=== PATIENT | male | born 1940 | race Caucasian/White ===

== ENCOUNTER 2017-01-31 20:08 | Inpatient (IN) | payer MEDICARE, OTHER ==
[~2017-01-31] VITALS: Ht 175.3 cm; Wt 70.7 kg
[2017-01-31] MEDS ORDERED: SOD CHLORIDE 0.9% 500 ML IV STA (20:11)
--- NOTE | 2017-01-31 20:23 | ERD ---
ER Documentation Chief Complaint Date/Time DATE: 01/31/17 TIME: 20:20 Chief Complaint lost pt's balance using a walker - c/o weakness/backpain, pt denies CP HPI 76-year-old male with a history of atrial fibrillation sent by his assisted living facility after a ground-level fall. The patient states that he was turning a corner with his walker and lost his balance and fell onto his back. He complains of some posterior head pain but no significant back pain. He denies any chest pain, shortness of breath, headache, fever, chills, abdominal pain, or dysuria. He has no focal weakness or numbness. He states that he is frequently dizzy and frequently has falls due to his gait disorder. ROS All systems reviewed and are negative except as per history of present illness. Medications Home Meds Reported Medications Zolpidem Tartrate* (Zolpidem Tartrate*) 5 Mg Tablet, 5 MG PO QHS Y for INSOMNIA , #30 TAB 01/31/17 Oxycodone HCl/Acetaminophen (Percocet 5-325 mg Tablet) 1 Each Tablet, 1 EACH PO , TAB 01/31/17 Morphine Sulfate* (Oramorph SR*) 15 Mg Tablet.sa, 15 MG PO Q12H, TAB.SA 01/31/17 Atorvastatin Calcium* (Atorvastatin Calcium*) 20 Mg Tablet, 20 MG PO QHS, #30 TAB 01/31/17 Tamsulosin Hcl* (Tamsulosin Hcl*) 0.4 Mg Cap.er.24h, 0.4 MG PO HS, CAP 01/31/17 Trazodone Hcl* (Trazodone Hcl*) 100 Mg Tablet, 100 MG PO QHS, #30 TAB 01/31/17 Divalproex Sodium* (Divalproex ER*) 250 Mg Tab.er.24h, 250 MG PO TID, #30 TAB.SA 01/31/17 Isosorbide Dinitrate* (Isosorbide Dinitrate*) 20 Mg Tablet, 20 MG PO Q12H, TAB 01/31/17 Gabapentin* (Gabapentin*) 300 Mg Capsule, 300 MG PO TID, #90 CAP 01/31/17 Lamotrigine* (Lamotrigine*) 25 Mg Tablet, 25 MG PO BID, TAB 01/31/17 Amiodarone Hcl* (Amiodarone Hcl*) 200 Mg Tablet, 200 MG PO DAILY, #30 TAB 01/31/17 Pantoprazole* (Pantoprazole*) 40 Mg Tablet.dr, 40 MG PO Q6:30AM, TAB 01/31/17 Allergies Allergies: Coded Allergies: No Known Allergy (Unverified , 01/31/17) PMhx/Soc History of Surgery: Yes (bilateral lower extremity bypass grafts) Hx Neurological Disorder: Yes (Parkinson's disease) Hx Cardiac Disorders: Yes (A fib) Hx Psychiatric Problems: Yes (Bipolar d/o) Hx Miscellaneous Medical Probl: Yes (BPH) FmHx Family History: No diabetes Physical Exam Vitals Vital Signs Date Time Temp Pulse Resp B/P Pulse Ox O2 Delivery O2 Flow Rate FiO2 01/31/17 20:11 98.2 90 17 139/75 96 Physical Exam Const: Well-appearing, no apparent distress Head: Atraumatic , No tenderness to palpation Eyes: Normal Conjunctiva, PERRLA, EOMI ENT: Normal External Ears, Nose and Mouth. Neck: Full range of motion..~ No meningismus.No C-spine tenderness to palpation Resp: Clear to auscultation bilaterally Cardio: Regular rate and rhythm, no murmurs Abd: Soft, non tender, non distended. Normal bowel sounds Skin: No petechiae or rashes, Superficial abrasion to left knee Back: No midline or flank tenderness. No step-offs. No evidence of trauma. Ext: No cyanosis, or edema. No deformities or tenderness to palpation. Neur: Awake and alert And oriented, strength and sensations intact in all 4 extremities, cranial nerves intact Psych: Normal Mood and Affect Result Diagram: 01/31/17205401/31/172054 Results 24 hrs Laboratory Tests Test 01/31/17 20:29 01/31/17 20:55 01/31/17 21:23 Bedside Glucose 127mg/dL White Blood Count 8.310^3/ul Red Blood Count 3.2210^6/ul Hemoglobin 10.8g/dl Hematocrit 32.8% Mean Corpuscular Volume 101.9fl Mean Corpuscular Hemoglobin 33.5pg Mean Corpuscular Hemoglobin Concent 32.9g/dl Red Cell Distribution Width 14.2% Platelet Count 36918^3/UL Mean Platelet Volume 10.4fl Neutrophils % % Lymphocytes % % Monocytes % % Eosinophils % % Basophils % % Nucleated Red Blood Cells % 0.0/100WBC Neutrophils # (Manual) 5.010^3/ul Lymphocytes # 10^3/ul Monocytes # 10^3/ul Eosinophils # 10^3/ul Basophils # 10^3/ul Nucleated Red Blood Cells # 10^3/ul Sodium Level 140mmol/L Potassium Level 4.7mmol/L Chloride Level 102mmol/L Carbon Dioxide Level 26mmol/L Anion Gap 17 Blood Urea Nitrogen 20mg/dl Creatinine 1.46mg/dl Glucose Level 105mg/dl Calcium Level 9.1mg/dl Troponin I 3.130ng/ml Urine Color YELLOW Urine Clarity CLEAR Urine pH 7.0 Urine Specific [place] 1.011 Urine Ketones NEGATIVEmg/dL Urine Nitrite NEGATIVEmg/dL Urine Bilirubin NEGATIVEmg/dL Urine Urobilinogen 1+mg/dL Urine Leukocyte Esterase 2+Maxim/ul Urine Microscopic RBC 2/HPF Urine Microscopic WBC 28/HPF Urine Hemoglobin NEGATIVEmg/dL Urine Glucose NEGATIVEmg/dL Urine Total Protein 2+mg/dl Current Medications Medications (Trade) Dose Ordered Sig/Andriy Route PRN Reason Start Time Stop Time Status Last Admin Dose Admin Sodium Chloride (NS) 500 ml @ 500 mls/hr Q1H STAT IV 01/31/17 20:11 01/31/17 21:10 DC 01/31/17 21:06 Procedures/MDM EKG#1: Rate/Rhythm: Normal Sinus Rhythm QRS, ST, T-waves: Left axis deviation, right bundle branch block,, anterolateral T-wave abnormalities, possibly ischemic Impression: No STEMI, abnormal EKG EKG#2: Rate/Rhythm: SB with sinus arrhythmia at 58 bpm QRS, ST, T-waves: right bundle branch block,LAFB , anterolateral T-wave abnormalities, possibly ischemic Impression: No STEMI, abnormal EKG CBC: no anemia or evidence of infection BMP: Creatinine elevated Troponin elevated UA: Positive leuk esterase and WBCs Chest x-ray: 1. Patchy left retrocardiac opacity which may represent atelectasis or consolidation. Chronic interstitial changes . Ginger Gomez Physician Date Time Electronically viewed and signed by Physician Whit on 01/31/2017 22:20 CT head: IMPRESSION: 1. No intracranial hemorrhage or acute intracranial abnormality. 2. Marked chronic microvascular ischemic changes and age related volume loss. 3. Remote right temporal lobe ischemic infarct. 4. Early ischemic injury may be occult to CT imaging and diffusion weighted MRI may be considered as clinically warranted. Physician Whit Date Time Electronically viewed and signed by Physician Whit on 01/31/2017 22:18 MDM Patient is presenting with dizziness and a ground-level fall. Vitals are stable and he is completely well appearing. Initial EKG showed some ischemic changes but no obvious STEMI. Basic labs and cardiac labs were ordered and were notable for elevation of troponin. Upon reevaluation, the patient continues to be asymptomatic. Aspirin was given in the field. CT head was done due to blunt head injury from the fall and showed no acute abnormality. I have a low suspicion for CVA, PE or dissection. Patient will be admitted for further workup for NSTEMI. I spoke with Dr. Gustafson, who accepted patient for admission to telemetry. Departure Diagnosis: Primary Impression: NSTEMI (non-ST elevated myocardial infarction) Additional Impression: Fall from ground level Condition: Serious SALIMA TORRES MD Jan 31, 2017 20:23
[2017-01-31] MEDS ORDERED: PANT40TA4 PO (20:44)
[2017-01-31] MEDS ORDERED: AMIO200T2 PO (20:45)
[2017-01-31] MEDS ORDERED: LAMO25TA PO (20:47)
[2017-01-31] MEDS ORDERED: GABA300C16 PO (20:48)
[2017-01-31] MEDS ORDERED: ISOS20TA19 PO (20:50)
[2017-01-31] MEDS ORDERED: TRAZ100T15 PO (20:52)
[2017-01-31] MEDS ORDERED: DIVA250T12 PO (20:52)
[2017-01-31] MEDS ORDERED: TAMS0.4C2 PO (20:55)
[2017-01-31] MEDS ORDERED: ATOR20TA38 PO (20:57)
[2017-01-31] MEDS ORDERED: MORP-72 PO (20:59)
[2017-01-31] MEDS ORDERED: OXYC-279 PO (21:01)
[2017-01-31] MEDS ORDERED: ZOLP5TAB7 PO (21:02)
[2017-01-31 21:17] LABS: ABNORMAL IP MESSAGE 1; HEMATOCRIT 32.8 % (42.0-52.0); HEMOGLOBIN 10.8 g/dl (14.0-18.0); MEAN CORPUSCULAR HEMOGLOBIN 33.5 pg (29.0-33.0); MEAN CORPUSCULAR HGB CONC 32.9 g/dl (32.0-37.0); MEAN CORPUSCULAR VOLUME 101.9 fl (82.0-101.0); MEAN PLATELET VOLUME 10.4 fl (7.4-10.4); PLATELET COUNT 174 10^3/UL (140-415); POSITIVE DIFF @See below; RED BLOOD COUNT 3.22 10^6/ul (4.70-6.10); RED CELL DISTRIBUTION WIDTH 14.2 % (11.5-14.5); WHITE BLOOD COUNT 8.3 10^3/ul (4.8-10.8)
[2017-01-31 21:35] LABS: CALCIUM 9.1 mg/dl (8.4-10.2); CREATININE 1.46 mg/dl (0.61-1.24); POTASSIUM 4.7 mmol/L (3.5-5.1)
[2017-01-31 21:49] LABS: ADD UMIC YES; UR ASCORBIC ACID NEGATIVE (NEGATIVE); UR BILIRUBIN (Dip) NEGATIVE (NEGATIVE); UR BLOOD (Dip) NEGATIVE (NEGATIVE); UR CLARITY CLEAR (CLEAR); UR COLOR YELLOW (YELLOW); UR GLUCOSE (Dip) NEGATIVE (NEGATIVE); UR KETONES (Dip) NEGATIVE (NEGATIVE); UR LEUKOCYTE ESTERASE (Dip) 2+ Leu/ul (NEGATIVE); UR NITRITE (Dip) NEGATIVE (NEGATIVE); UR RBC 2 /HPF (0-5); UR SPECIFIC GRAVITY (Dip) 1.011 (1.003-1.030); UR TOTAL PROTEIN (Dip) 2+ mg/dl (NEGATIVE); UR UROBILINOGEN (Dip) 1+ mg/dL (NEGATIVE)
[2017-01-31 21:51] LABS: TROPONIN-I 3.13 ng/ml (0.00-0.12)
--- NOTE | 2017-01-31 22:18 | RADRPT ---
PROCEDURE: CT Brain without contrast. CLINICAL INDICATION: Patient experiencing Syncope. TECHNIQUE: A multiplanar CT of the brain was performed on a CT scanner utilizing axial imaging fro m the skull base through the vertex without IV contrast. The CTDIvol is 43.44 mGy and the DLP is 92 2.20 mGycm. One or more of the following dose reduction techniques were utilized: Automated exposu re control, adjustment of the mA and/or kV according to patient size, use of iterative reconstructio n technique. COMPARISON: None FINDINGS: No evidence of intracranial hemorrhage or abnormal extra-axial fluid collection. Moderate patchy periventricular and subcortical white matter low attenuation compatible with sequela e of chronic microvascular ischemic injury. Encephalomalacia of the right posterior inferior tempora l lobe with mild ex vacuo dilatation of the right lateral ventricle most compatible with sequelae of remote ischemic infarct the brain parenchyma is otherwise grossly normal in morphology with preserv ation of remaining howard white differentiation. The ventricles are prominent compatible with marked c entral cerebral and cerebellar volume loss. Atherosclerotic calcification of the cavernous internal carotid arteries.. Bilateral lens surgery. The basal cisterns, posterior fossa contents, brainstem, craniocervical junction, orbits, pituitary axis, paranasal sinuses, mastoid air cells, and calvarium are unremarkable. IMPRESSION: 1. No intracranial hemorrhage or acute intracranial abnormality. 2. Marked chronic microvascular ischemic changes and age related volume loss. 3. Remote right temporal lobe ischemic infarct. 4. Early ischemic injury may be occult to CT imaging and diffusion weighted MRI may be considered as clinically warranted. RPTAT:AAJJ Physician Whit Date Time Electronically viewed and signed by Physician Whit on 01/31/2017 22:18 RENETTA/
--- NOTE | 2017-01-31 22:20 | RADRPT ---
PROCEDURE: XR Chest. CLINICAL INDICATION: Syncope TECHNIQUE: Single AP portable chest. COMPARISON: No prior Chest x-ray FINDINGS: The cardiac silhouette is at the upper limits of normal size. Without pleural effusion or focal con solidation. Left retrocardiac atelectasis and/or consolidation. Atherosclerotic calcification of the aorta. The lungs are clear without pleural effusion or focal consolidation. No pneumothorax. Th e osseous structures and soft tissues are unremarkable. IMPRESSION: 1. Patchy left retrocardiac opacity which may represent atelectasis or consolidation. Chronic inter stitial changes . RPTAT:AAJJ Gniger Gomez Physician Date Time Electronically viewed and signed by Physician Whit on 01/31/2017 22:20 RENETTA/
[2017-01-31] MEDS ORDERED: ACETAMINOPHEN 325 MG TAB PO PRN (22:30)
[2017-01-31] MEDS ORDERED: ONDANSETRON 4 MG INJ IV PRN (22:30)
[2017-02-01] VITALS (14 sets, daily range): BP systolic 102–167; BP diastolic 51–80; PULSE 47–95; RESP 17–21; TEMP 98.3; Ht 175.3 cm; Wt 70.7 kg
[2017-02-01] MEDS: ENOXAPARIN 80 MG/0.8 ML SYG SC SCH ×2 (04:13→20:22)
[2017-02-01] MEDS: morphine 2 MG INJ IV PRN (04:16)
[2017-02-01] MEDS: NITROGLYCERIN (SL) 0.4 MG TAB SL PRN ×3 (04:51→05:07)
[2017-02-01] MEDS ORDERED: ALBUTEROL/IPRATROPIUM (NEB) 3 ML AMP HHN STA (05:08)
[2017-02-01 05:27] LABS: AADO2 Arterial 178.3 mmHg (7.0-24.0); Allen Test ACCEPTAB; Arterial Base Excess -0.2 mmol/L (-3.0-3); Arterial COHb 0.8 % (0.0-3.0); Arterial Fraction of Oxyhgb 87.3 % (93.0-99.0); Arterial HCO3 24.4 mmol/L (22.0-26.0); Arterial MetHb 0.2 % (0.0-1.5); Arterial Total Hemglobin 11.9 g/dl (12.0-18.0); MODE NASAL CANNULA
[2017-02-01] MEDS ORDERED: PENDING SANTYL ORDER FOR WOUND CARE XX PRN (06:00)
[2017-02-01 08:33] LABS: ABNORMAL IP MESSAGE 1; BASOPHILS % 0.3 % (0.0-2.0); EOSINOPHILS # 0.1 10^3/ul (0.0-0.5); EOSINOPHILS % 1.2 % (0.0-7.0); HEMATOCRIT 30.6 % (42.0-52.0); HEMOGLOBIN 9.9 g/dl (14.0-18.0); LYMPHOCYTES % 9.5 % (15.0-51.0); MEAN CORPUSCULAR HEMOGLOBIN 33.1 pg (29.0-33.0); MEAN CORPUSCULAR HGB CONC 32.4 g/dl (32.0-37.0); MEAN CORPUSCULAR VOLUME 102.3 fl (82.0-101.0); MEAN PLATELET VOLUME 11.5 fl (7.4-10.4); MONOCYTE # 2.6 10^3/ul (0.3-0.9); MONOCYTES % 24.3 % (0.0-11.0); NEUTROPHILS % 64.4 % (39.0-77.0); PLATELET COUNT 214 10^3/UL (140-415); POSITIVE DIFF @See below; RED BLOOD COUNT 2.99 10^6/ul (4.70-6.10); RED CELL DISTRIBUTION WIDTH 14.5 % (11.5-14.5); WHITE BLOOD COUNT 10.7 10^3/ul (4.8-10.8)
[2017-02-01 08:42] LABS: ALBUMIN 2.7 g/dl (3.3-4.9); ALBUMIN/GLOBULIN RATIO 1.08; BILIRUBIN,INDIRECT 0.2 mg/dl (0-1.1); BILIRUBIN,TOTAL 0.2 mg/dl (0.2-1.3); CALCIUM 8.5 mg/dl (8.4-10.2); CREATININE 1.37 mg/dl (0.61-1.24); POTASSIUM 4.8 mmol/L (3.5-5.1); TOTAL PROTEIN 5.2 g/dl (6.1-8.1)
[2017-02-01] MEDS: ISOSORBIDE DINITRATE 20 MG TAB PO SCH ×2 (08:55→20:20)
[2017-02-01] MEDS: morphine (ER) 15 MG TAB PO SCH ×2 (08:55→20:29)
[2017-02-01] MEDS: GABAPENTIN 300 MG CAP PO SCH ×3 (08:55→20:19)
[2017-02-01] MEDS: ASPIRIN (EC) 81 MG TAB PO SCH (08:55)
[2017-02-01] MEDS: AMIODARONE 200 MG TAB PO SCH (08:56)
[2017-02-01] MEDS: PANTOPRAZOLE (EC) 40 MG TAB PO SCH (08:56)
[2017-02-01] MEDS: LAMOTRIGINE 25 MG TAB PO SCH ×2 (08:58→20:20)
[2017-02-01] MEDS: DIVALPROEX (ER) 250 MG TAB PO SCH ×4 (08:58→20:19)
[2017-02-01 09:01] LABS: IRON 55 ug/dl (35-150)
[2017-02-01 09:11] LABS: TOTAL IRON BINDING CAPACITY 234 ug/dl (241-421)
--- NOTE | 2017-02-01 09:35 | HP ---
Date/Time of Note Date/Time of Note DATE: 02/01/17 TIME: 09:25 Assessment/Plan VTE Prophylaxis VTE Prophylaxis Intervention: LMWH Lines/Catheters IV [facility] Saline Lock Urinary Cath still in place: No Assessment/Plan Assessment/Plan 1. NSTEMI -Therapeutic dose Lovenox, supplemental oxygen, aspirin, beta-rita, statin -2D echo and cardiology consults 2. Status post fall -Based on the patient's description, it seems like this was a mechanical fall. Head CT showed early ischemic injury as well as remote infarct. Will order MRI of the brain. 3. UTI -Follow-up culture results -Antibiotic 4. Presumed acute kidney injury -Renal ultrasound and nephrology consult 5. Anemia, likely anemia of chronic disease -Evaluate for iron deficiency. Will send FOBT. Follow-up H&H and transfuse as needed HPI/ROS Admit Date/Time Admit Date/Time Jan 31, 2017 at 22:03 Hx of Present Illness This is a 76-year-old male with a history of A. fib, Parkinson's disease, bipolar disorder, PVD, s/p bilateral lower extremity bypass who was sent from assisted living facility status post GLF. Patient said he was ambulating using his walker when he somehow tripped and fell. He did bump his head his head against the wall and landed on his back. Denied loss of consciousness. Reported a slight dizziness, but denied chest pain, palpitation or shortness of breath When he presented to the ER, CT of the head shows remote infarcts as well as early ischemic injury. He is a first troponin was noted to be 3.13 and a second troponin III 0.0. His creatinine 1.46. His a urinalysis is consistent with UTI. Chest x-ray shows Patchy left retrocardiac opacity which may represent atelectasis or consolidation. Chronic interstitial changes . . PMH/Family/Social Past Medical History A. fib Parkinson's disease Bipolar disorder Social History Smoking Status: Current some day smoker Exam/Review of Systems Vital Signs Vitals Vital Signs Date Time Temp Pulse Resp B/P Pulse Ox O2 Delivery O2 Flow Rate FiO2 02/01/17 08:14 97.7 59 18 124/58 100 02/01/17 05:42 10.0 02/01/17 05:42 Simple Mask Intake and Output 01/31/17 01/31/1702/01/17 15:00 23:00 07:00 Intake Total 0 ml Balance 0 ml Exam Constitutional: other (Mild respiratory distress. Hard of hearing) Head: atraumatic, normocephalic Eyes: EOMI, PERRL Respiratory: clear to auscultation, normal air movement Cardiovascular: nl pulses, regular rate and rhythm Gastrointestinal: non-tender, soft Extremities: normal pulses Skin: ecchymosis Labs Result Diagram: 02/01/1772602/01/17726 Medications Medications Current Medications Enoxaparin Sodium (Lovenox) 70 mg Q12 SC Last administered on 02/01/17 04:13; Admin Dose 70 MG; Start 02/01/17 at 04:00 Nitroglycerin (Nitroglycerin (Sl Tab) 0.4 Mg) 1 tab Q5M PRN SL ANGINA Last administered on 02/01/17 05:07; Admin Dose 1 TAB; Start 02/01/17 at 04:00 Morphine Sulfate (morphine) 2 mg Q4H PRN IV PAIN Last administered on 04:16; Admin Dose 2 MG; Start 02/01/17 at 04:00 Miscellaneous Information (Pending Santyl Order For Wound Care) This patient becker... PRN PRN XX WOUND CARE; Start 02/01/17 at 06:00 Amiodarone HCl (Cordarone) 200 mg DAILY PO ; Start 02/01/17 at 09:00 Atorvastatin Calcium (Lipitor) 20 mg QHS PO ; Start 02/01/17 at 21:00 Divalproex Sodium (Depakote Er) 250 mg TID PO Last administered on 02/01/17 08 :59; Admin Dose 250 MG; Start 02/01/17 at 09:00 Gabapentin (Neurontin) 300 mg TID PO Last administered on 02/01/17 08:55; Admin Dose 300 MG; Start 02/01/17 at 09:00 Isosorbide Dinitrate (Isordil) 20 mg Q12H PO Last administered on 02/01/17 08: 55; Admin Dose 20 MG; Start 02/01/17 at 07:30 Lamotrigine (Lamictal) 25 mg BID PO Last administered on 02/01/17 08:58; Admin Dose 25 MG; Start 02/01/17 at 09:00 Morphine Sulfate (Ms Contin (Er)) 15 mg Q12H PO Last administered on 02/01/17 08:55; Admin Dose 15 MG; Start 02/01/17 at 07:30 Pantoprazole (Protonix Tab) 40 mg DAILY PO Last administered on 02/01/17 08:56 ; Admin Dose 40 MG; Start 02/01/17 at 09:00 Tamsulosin HCl (Flomax) 0.4 mg HS PO ; Start 02/01/17 at 21:00 Trazodone HCl (Desyrel) 100 mg QHS PO ; Start 02/01/17 at 21:00 Zolpidem Tartrate (Ambien) 5 mg QHS PRN PO INSOMNIA; Start 02/01/17 at 07:30 Aspirin (Halfprin) 81 mg DAILY PO Last administered on 02/01/17 08:55; Admin Dose 81 MG; Start 02/01/17 at 09:00 VINCENZO AQUINO MD Feb 01, 2017 09:35
--- NOTE | 2017-02-01 09:55 | QN ---
Documentation Comment 76 yo with HTN, PAD, parox a. fib - now with fall (unclear cause), RBBB/LAFB - intermittent - might be rate dependant, and NSTEMI. For now - med RX - con't r/ o MT - STRESS TEST when more stable Full Note dictated # [id number] Thank you CRESCENCIO CARRASQUILLO MD Feb 01, 2017 09:55
--- NOTE | 2017-02-01 10:09 | PN ---
Date/Time of Note Date/Time of Note DATE: 02/01/17 TIME: 10:07 Assessment/Plan VTE Prophylaxis VTE Prophylaxis Intervention: LMWH Lines/Catheters IV C[facility] (from [facility] Saline Lock Urinary Cath still in place: No Assessment/Plan Chief Complaint/Hosp Course Assessment and plan 1. Non-ST elevated myocardial infarction. Continue on therapeutic dose of Lovenox and oxygen as well as beta-rita and statin medication. 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 Follow-up on echocardiogram. 2. Status post mechanical fall. CT scan of the head showed early ischemic injury. MRI of the brain is pending. Physical therapy to follow. 3. UTI. Continue antibiotics for now. 4. Acute kidney injury. Medications to be renally dosed. Follow-up on renal panel. Postal Inspector to follow. 5. Anemia of chronic disease. Stable at present. Follow-up on pending her level. Disposition and plan: Continue on therapeutic dose of Lovenox for now. Tentative plan for stress test once more stable. Continue with in tube conversion technician recommendations. Discussed plan of care with Dr. Landon Problems: Subjective 24 Hr Interval Summary Free Text/Dictation Still reports having chest discomfort. Also reports having some shortness of breath associated with it Exam/Review of Systems Vital Signs Vitals Vital Signs Date Time Temp Pulse Resp B/P Pulse Ox O2 Delivery O2 Flow Rate FiO2 02/01/17 08:14 97.7 59 18 124/58 100 02/01/17 05:42 10.0 02/01/17 05:42 Simple Mask Intake and Output 01/31/17 01/31/17 02/01/17 14:59 22:59 06:59 Intake Total 0 ml Balance 0 ml Exam Constitutional: alert, oriented Psych: nl mood/affect Head: normocephalic Eyes: nl conjunctiva Respiratory: clear to auscultation Cardiovascular: other (regular rate ) Gastrointestinal: non-tender, soft Extremities: normal pulses Neurological: nl mental status, nl speech Skin: nl turgor Results Result Diagram: 02/01/17 0702/01/17 0727 Results 24 hrs Laboratory Tests Test 01/31/17 20:29 01/31/17 20:55 01/31/17 21:23 02/01/17 03:50 Bedside Glucose 127 White Blood Count 8.3 Red Blood Count 3.22 L Hemoglobin 10.8 L Hematocrit 32.8 L Mean Corpuscular Volume 101.9 H Mean Corpuscular Hemoglobin 33.5 H Mean Corpuscular Hemoglobin Concent 32.9 Red Cell Distribution Width 14.2 Platelet Count 174 Mean Platelet Volume 10.4 Neutrophils % Lymphocytes % Monocytes % Eosinophils % Basophils % Nucleated Red Blood Cells % 0.0 Neutrophils # (Manual) 5.0 Lymphocytes # Monocytes # Eosinophils # Basophils # Nucleated Red Blood Cells # Sodium Level 140 Potassium Level 4.7 Chloride Level 102 Carbon Dioxide Level 26 Anion Gap 17 H Blood Urea Nitrogen 20 Creatinine 1.46 H Glucose Level 105 Calcium Level 9.1 Troponin I 3.130 *H 3.050 *H Urine Color YELLOW Urine Clarity CLEAR Urine pH 7.0 Urine Specific [place] 1.011 Urine Ketones NEGATIVE Urine Nitrite NEGATIVE Urine Bilirubin NEGATIVE Urine Urobilinogen 1+ H Urine Leukocyte Esterase 2+ H Urine Microscopic RBC 2 Urine Microscopic WBC 28 H Urine Hemoglobin NEGATIVE Urine Glucose NEGATIVE Urine Total Protein 2+ H Test 02/01/17 05:03 02/01/17 07:24 02/01/17 07:27 Blood Gas Specimen Source Blood arterial Arterial Blood Date Drawn 02/01/2017 5:20:10 AM Arterial Blood pH (Temp corrected) 7.408 Arterial Blood pCO2 (Temp correct) 39.5 Arterial Blood pO2 (Temp corrected) 54.2 *L Arterial Blood HCO3 24.4 Arterial Blood Base Excess -0.2 Arterial Blood Oxygen Saturation 88.2 L Ovidio Test ACCEPTAB Arterial Blood Gas Puncture Site Right Radial Arterial Blood Carboxyhemoglobin 0.8 Arterial Blood Methemoglobin 0.2 Blood Gas A-a O2 Differential 178.3 H Oxyhemoglobin Percent 87.3 L Total Hemoglobin 11.9 L Blood Gas Temperature 37.0 Blood Gas Modality NASAL CANNULA FiO2 39.0 Blood Gas Critical Value Read Back DIEGO JIMENEZ Blood Gas Notified Whom RUSTY Blood Gas Notified Time 02/01/2017 5:27:04 AM Iron Level 55 Total Iron Binding Capacity 234 L Percent Iron Saturation 24 White Blood Count 10.7 # Red Blood Count 2.99 L Hemoglobin 9.9 L Hematocrit 30.6 L Mean Corpuscular Volume 102.3 H Mean Corpuscular Hemoglobin 33.1 H Mean Corpuscular Hemoglobin Concent 32.4 Red Cell Distribution Width 14.5 Platelet Count 214 # Mean Platelet Volume 11.5 H Neutrophils % 64.4 Lymphocytes % 9.5 L Monocytes % 24.3 H Eosinophils % 1.2 Basophils % 0.3 Nucleated Red Blood Cells % 0.0 Neutrophils # (Manual) 6.9 Lymphocytes # 1.0 Monocytes # 2.6 H Eosinophils # 0.1 Basophils # 0.0 Nucleated Red Blood Cells # 0.0 Sodium Level 143 Potassium Level 4.8 Chloride Level 106 Carbon Dioxide Level 27 Anion Gap 15 Blood Urea Nitrogen 21 H Creatinine 1.37 H Glucose Level 77 Calcium Level 8.5 Ferritin 44.0 Total Bilirubin 0.2 Direct Bilirubin 0.00 Indirect Bilirubin 0.2 Aspartate Amino Transf (AST/SGOT) 36 Alanine Aminotransferase (ALT/SGPT) 27 Alkaline Phosphatase 41 L Total Protein 5.2 L Albumin 2.7 L Globulin 2.50 Albumin/Globulin Ratio 1.08 Medications Medications Current Medications Enoxaparin Sodium (Lovenox) 70 mg Q12 SC Last administered on 02/01/17 04:13; Admin Dose 70 MG; Start 02/01/17 at 04:00 Nitroglycerin (Nitroglycerin (Sl Tab) 0.4 Mg) 1 tab Q5M PRN SL ANGINA Last administered on 02/01/17 05:07; Admin Dose 1 TAB; Start 02/01/17 at 04:00 Morphine Sulfate (morphine) 2 mg Q4H PRN IV PAIN Last administered on 04:16; Admin Dose 2 MG; Start 02/01/17 at 04:00 [facility] This patient becker... PRN PRN XX WOUND CARE; Start 02/01/17 at 06:00 Amiodarone HCl (Cordarone) 200 mg DAILY PO ; Start 02/01/17 at 09:00 Atorvastatin Calcium (Lipitor) 20 mg QHS PO ; Start 02/01/17 at 21:00 Divalproex Sodium (Depakote Er) 250 mg TID PO Last administered on 02/01/17 08 :59; Admin Dose 250 MG; Start 02/01/17 at 09:00 Gabapentin (Neurontin) 300 mg TID PO Last administered on 02/01/17 08:55; Admin Dose 300 MG; Start 02/01/17 at 09:00 Isosorbide Dinitrate (Isordil) 20 mg Q12H PO Last administered on 02/01/17 08: 55; Admin Dose 20 MG; Start 02/01/17 at 07:30 Lamotrigine (Lamictal) 25 mg BID PO Last administered on 02/01/17 08:58; Admin Dose 25 MG; Start 02/01/17 at 09:00 Morphine Sulfate (Ms Contin (Er)) 15 mg Q12H PO Last administered on 02/01/17 08:55; Admin Dose 15 MG; Start 02/01/17 at 07:30 Pantoprazole (Protonix Tab) 40 mg DAILY PO Last administered on 02/01/17 08:56 ; Admin Dose 40 MG; Start 02/01/17 at 09:00 Tamsulosin HCl (Flomax) 0.4 mg HS PO ; Start 02/01/17 at 21:00 Trazodone HCl (Desyrel) 100 mg QHS PO ; Start 02/01/17 at 21:00 Zolpidem Tartrate (Ambien) 5 mg QHS PRN PO INSOMNIA; Start 02/01/17 at 07:30 Aspirin 81 mg 81 mg DAILY PO Last administered on 02/01/17 08:55; Admin Dose 81 MG; Start 02/01/17 at 09:00 Ciprofloxacin/ Dextrose (Cipro Ivpb) 200 ml @ 200 mls/hr Q12 IVPB ; Start 02/01 at 10:30 RADHA EISENBERG Feb 01, 2017 10:09
[2017-02-01] MEDS: CIPROFLOXACIN 400MG/D5W 200 ML IVPB SCH ×2 (11:24→20:20)
--- NOTE | 2017-02-01 12:10 | CONS ---
DATE OF ADMISSION: 01/31/2017 DATE OF CONSULTATION: 02/01/2017 REASON FOR CONSULTATION: Acute kidney injury. REQUESTING PHYSICIAN: Gopal Gustafson MD HISTORY OF PRESENT ILLNESS: This is a 76-year-old male with a past medical history of atrial fibrillation, Parkinson disease, bipolar disorder, peripheral vascular disease status post bilateral lower extremity bypass, who presents to [facility] from assisted living after having a ground level fall. The patient apparently was ambulating with his walker, somehow tripped and he fell. The patient did not lose consciousness. He came to the emergency room for evaluation. In the emergency room had a CT scan which showed evidence of remote infarct. The patient also had a initial troponin to be 3.39, creatinine 1.46. Chest x-ray also showed patchy left retrocardiac opacity in the emergency room. The patient was given nebulizer therapy, IV fluids, given Lovenox and admitted to telemetry for evaluation. In terms of patient's renal history, per patient has no prior history of kidney disease. Denies any episodes of any rashes, hemoptysis, hematemesis, hematochezia. PAST MEDICAL HISTORY: As stated above history of atrial fibrillation, Parkinson disease, bipolar disorder. PAST SURGICAL HISTORY: None. SOCIAL HISTORY: Positive tobacco use. FAMILY HISTORY: Noncontributory. MEDICATION: Reviewed. REVIEW OF SYSTEMS: A 14-point review of systems conducted with pertinent positives as in HPI, otherwise negative. OBJECTIVE DATA: VITAL SIGNS: Blood pressure is 124/58, respirations 18, pulse 69, temperature 97.7. HEENT: Head is normocephalic. NECK: Supple. HEART: Regular rate. LUNGS: Diminished breath sounds at the base. ABDOMEN: Soft, nontender to palpation. No rebound or guarding. EXTREMITIES: Negative for clubbing, cyanosis. No edema. DERMATOLOGIC: Clean. No rashes. MUSCULOSKELETAL: No joint effusion. NEUROLOGIC: Unchanged exam. LABORATORY: White count 10.7, hemoglobin 9.9, hematocrit 30.3, platelet count is 214,000. Sodium 143, potassium 4.9, chloride 106, BUN is 21, creatinine 1.31. DIAGNOSTIC DATA: Imaging studies as in HPI. IMPRESSION AND PLAN: This is a 76-year-old male presents with: 1. Nonoliguric acute kidney injury on top of probable chronic kidney disease with unknown baseline creatinine. Etiology of current acute kidney injury is likely hemodynamics. The patient's initial urinalysis is bland, no active sediment. The patient does have +2 proteinuria and pyuria. Plan at this point is to do a full evaluation. Will repeat urinalysis with microanalysis. We will check urine electrolytes. Check renal ultrasound to evaluate renal parenchyma. Would otherwise continue supportive care. Renally dose all medications. Avoid nephrotoxins. Would defer any KWAKU inhibitor at this time. 2. Anemia. Monitor hemoglobin and hematocrit levels. Will check iron panel. 3. Mineral bone disorder. Monitor calcium and phosphorus levels. 4. Non-ST elevated myocardial infarction. Continue current medical management. Follow up with Cardiology. 5. Mechanical fall. Continue physical therapy. 6. Urinary tract infection. Continue current antibiotic regimen. Thank you, Dr. Gustafson, for this interesting consult. It will be a pleasure to follow patient with you throughout the hospital course. Dictated By: Lee James DO /faye/rio /Document#: [id number]
--- NOTE | 2017-02-01 13:40 | RADRPT ---
PROCEDURE: US Renal CLINICAL INDICATION: Elevated creatinine. TECHNIQUE: Multiple sonographic images of the kidneys and bladder were obtained. Evaluation of th e kidneys and bladder was performed as well with howard scale and color and Doppler evaluation using a curved array transducer. The images were reviewed on a high-resolution PACS workstation. COMPARISON: No prior studies are available for comparison. FINDINGS: The right kidney measures 9.8 cm. The left kidney measures 13.8 cm. There is normal echogenicity within the parenchyma of the kidneys bilaterally. There are multiple bilateral renal cysts. Largest on the right measures 2.8 x 1.5 cm. The largest on the left measures 10.4 x 6.1 cm. There is no evidence of hydronephrosis. No perinephric fluid collection is seen. Evaluation of the urinary bladder is unremarkable. IMPRESSION: 1. Bilateral renal cysts. RPTAT: [facility] Physician Alyin Date Time Electronically viewed and signed by Physician Aylin on 02/01/2017 13:39 /
[2017-02-01 15:27] LABS: ADD UMIC YES; UR ASCORBIC ACID NEGATIVE (NEGATIVE); UR BILIRUBIN (Dip) NEGATIVE (NEGATIVE); UR BLOOD (Dip) NEGATIVE (NEGATIVE); UR CLARITY CLEAR (CLEAR); UR COLOR YELLOW (YELLOW); UR GLUCOSE (Dip) NEGATIVE (NEGATIVE); UR KETONES (Dip) NEGATIVE (NEGATIVE); UR LEUKOCYTE ESTERASE (Dip) 1+ Leu/ul (NEGATIVE); UR NITRITE (Dip) NEGATIVE (NEGATIVE); UR RBC 2 /HPF (0-5); UR SPECIFIC GRAVITY (Dip) 1.016 (1.003-1.030); UR TOTAL PROTEIN (Dip) 2+ mg/dl (NEGATIVE); UR UROBILINOGEN (Dip) 1+ mg/dL (NEGATIVE)
--- NOTE | 2017-02-01 18:11 | RADRPT ---
Vent Rate: 63 bpm RR Interval: 0 msec [place] Interval: 160 msec QRS Duration: 148 msec QT Interval: 442 msec QTC Interval: 452 msec P-R-T [place]: 66 - -74 - -43 degrees Normal sinus rhythm Left axis deviation Right bundle branch block T wave abnormality, consider inferolateral ischemia Abnormal ECG Electronically Signed By: Tushar Rivera [id number]
[2017-02-01] MEDS: TAMSULOSIN (SR) 0.4 MG CAP PO SCH (20:19)
[2017-02-01] MEDS: ATORVASTATIN 20 MG TAB PO SCH (20:20)
[2017-02-01] MEDS: traZODone 100 MG TAB PO SCH (20:29)
--- NOTE | 2017-02-01 21:38 | CONS ---
Date/Time of Note Date/Time of Note DATE: 02/01/17 TIME: 21:37 Assessment/Plan Assessment/Plan Chief Complaint/Hosp Course neuro consult dictated [id number]. Thanks Problems: CANDY VILLAVICENCIO MD Feb 01, 2017 21:38
[2017-02-02] VITALS (12 sets, daily range): BP systolic 108–140; BP diastolic 58–69; PULSE 47–61; RESP 16–18
--- NOTE | 2017-02-02 02:32 | CONS ---
DATE OF ADMISSION: 01/31/2017 DATE OF CONSULTATION: 02/01/2017 Thank you, Dr. Jeong, for the kind referral for evaluation for fall and possible stroke. HISTORY OF PRESENT ILLNESS: Patient is a 76-year-old gentleman with past medical history of atrial fibrillation, bipolar disorder, peripheral vascular disease, history of lower extremity bypass, as well as a reported of history of Parkinson disease, who presented after an accidental fall from his assisted living facility. He was ambulating with a walker and then tripped and fell, complained of hitting the head, no loss of consciousness. CAT scan did not show any acute abnormality but remote right temporal lobe ischemic infarct and microvascular ischemic changes. Chest x-ray: Patchy left retrocardiac opacity. Renal ultrasound was done, showing bilateral renal cysts. On admission, the patient had BUN of 20, creatinine 1.46 with elevated troponins 3.1. Rest of the comprehensive metabolic panel was done today showing total protein 5.2, and albumin 2.7. Hemoglobin 10, hematocrit 32, increased indices, normal WBCs and platelets. Urinalysis: 1+ leukocyte esterase, 14 WBCs, protein in the urine. ABG: pCO2 39, PO2 54, on nasal cannula. EKG shows normal rhythm. Cardiology is on the case. SOCIAL HISTORY: Cigarette smoker. FAMILY HISTORY: Not contributory. MEDICATIONS: Prior to admission were: 1. Tamsulosin. 2. Amiodarone. 3. Atorvastatin 20 mg. 4. Isosorbide. 5. Depakote ER 250 mg 3 times a day. 6. Gabapentin 300 mg 3 times a day. 7. Lamotrigine 25 mg twice daily. 8. Oxycodone. 9. Trazodone. 10. Zolpidem. 11. Pantoprazole. Currently he is on: 12. Lipitor 40. 13. Flomax. 14. trazodone. 15. Ciprofloxacin. 16. Amiodarone. 17. Depakote as prior to admission, as well as. 18. Gabapentin. 19. Lamictal. 20. Aspirin 81 mg. 21. Isosorbide. 22. Morphine. ALLERGIES: NONE. PHYSICAL EXAMINATION: VITAL SIGNS: Today, 98.2 temperature, 57pulse, 17 respirations, 102/51 blood pressure. GENERAL APPEARANCE: Not in acute distress. Lying in bed. HEENT: Normocephalic,m atraumatic head. No carotid bruits. No thyromegaly. LUNGS: Clear to auscultation bilaterally. No meningeal signs. HEART: Normal cardiac rhythm and sounds. ABDOMEN: Soft. EXTREMITIES: No cyanosis, clubbing, or edema. NEUROLOGIC: He is awake, alert, and oriented x2, knows date, fluent speech. Cranial nerve examination: Intact visual dimas to visual threat bilaterally. Pupils postsurgical bilaterally. Extraocular movements intact without nystagmus. Symmetrical face. Preserved facial strength and sensation. Tongue is midline. Palate elevates symmetrically. Motor strength examination seemed to be preserved in all extremities. The patient is not fully cooperative with the examination for manual strength testing. Trace of cogwheeling noticed in the upper extremities. Sensory examination: Grossly intact to light touch. Deep tendon reflexes 1+ upper extremities, absent in lower extremities. Equivocal response to plantar stimulation bilaterally. Coordination is preserved on pxssag-aa-oyljhw testing. Mild postural tremor noticed on the fingers. No resting tremor is seen. No dysmetria. Gait was not assessed. IMPRESSION: 1. Status post incidental fall with blunt head trauma. CAT scan did not show any acute abnormality. 2. Patient also with history of atrial fibrillation. Currently, myocardial infarction. Cardiology workup underway. He has history of bipolar disorder and is on several mood stabilizers. Likely mild tremulousness in the fingers is secondary to oral Valproic acid use. 3. According to the chart, patient has history of Parkinson disease. He is not on any parkinsonian medications and he seemed to be somewhat confused and could not provide history of whether or not he has or for how long. I did not asses his gait though, i will leave it physical therapist, but I did not see any major parkinsonian features on examination so far. 4. Also, I do not know from the charts why he is taking morphine. Continue current treatment for urinary tract infection and myocardial infarction. Thank you very much for this interesting consultation. Dictated By: Juanito Brownlee MD /faye/tricia /Document#: [id number] TARUN
[2017-02-02 08:09] LABS: ABNORMAL IP MESSAGE 1; BASOPHIL # 0.1 10^3/ul (0.0-0.1); BASOPHILS % 0.6 % (0.0-2.0); EOSINOPHILS # 0.3 10^3/ul (0.0-0.5); EOSINOPHILS % 4.1 % (0.0-7.0); HEMATOCRIT 31.6 % (42.0-52.0); LYMPHOCYTES # 1.7 10^3/ul (0.8-2.9); LYMPHOCYTES % 21.5 % (15.0-51.0); MEAN CORPUSCULAR HEMOGLOBIN 33.1 pg (29.0-33.0); MEAN CORPUSCULAR HGB CONC 31.6 g/dl (32.0-37.0); MEAN CORPUSCULAR VOLUME 104.6 fl (82.0-101.0); MEAN PLATELET VOLUME 10.2 fl (7.4-10.4); MONOCYTES % 25.1 % (0.0-11.0); NEUTROPHILS % 48.4 % (39.0-77.0); PLATELET COUNT 164 10^3/UL (140-415); POSITIVE DIFF @See below; RED BLOOD COUNT 3.02 10^6/ul (4.70-6.10); RED CELL DISTRIBUTION WIDTH 13.8 % (11.5-14.5); WHITE BLOOD COUNT 7.8 10^3/ul (4.8-10.8)
--- NOTE | 2017-02-02 08:26 | CONS ---
DATE OF ADMISSION: 01/31/2017 DATE OF CONSULTATION: 02/01/2017 REASON FOR CONSULTATION: [id number] myocardial infarction, abnormal EKG, bundle branch block. HISTORY OF PRESENT ILLNESS: This is a 76-year-old gentleman with history of hypertension, atrial fibrillation, bipolar disease, peripheral vascular disease with prior lower extremity bypass, history of coronary artery disease and likely history of heart failure, who comes to the hospital now for evaluation of ground level fall. I do not believe the fall was witnessed. When the patient came to the hospital he was noted to be in sinus tachycardia with left anterior fascicular block, right bundle branch block, and some evidence of troponin elevation. I have been asked to see patient in consultation in order to assess his cardiac condition. Patient's troponin was elevated to 3.13 and now down to 0.0. His CK is 1.4. The patient has noted no chest pain right now. The patient is in sinus rhythm on telemetry with a heart rate about 63. For now, the patient appears to be hemodynamically stable. There is no evidence of chest pain at the moment. Also of interest, on telemetry it appears that the patient's QRS is fairly narrow and we will check another EKG to see if there is rate related aberration in his rhythm versus intermittent heart block. For now, conservative therapy is expected. We will continue to optimize patient's fluid status. We will treat expectantly and provide more recommendations as available. Once the patient is more stable, we will continue his recertification with a stress test. PAST MEDICAL HISTORY: Hypertension, dyslipidemia, paroxysmal atrial fibrillation, history of dementia, history of bipolar disease, peripheral vascular disease. ALLERGIES: NO KNOWN DRUG ALLERGIES. SOCIAL HISTORY: Does not smoke. Does not drink. Does not use any drugs. FAMILY HISTORY: Negative for sudden or premature coronary artery disease. MEDICATION: Include: 1. Lovenox subcu. 2. Nitroglycerin. 3. Morphine. 4. Amiodarone 20 mg once a day. 5. Atorvastatin. 6. Gabapentin. 7. 8. Motrin. 9. Pantoprazole. 10. Zolpidem. 11. Aspirin. REVIEW OF SYSTEMS: GENERAL: No fevers, no chills, no shortness of breath. HEENT: No changes in vision or hearing. CARDIOVASCULAR: No chest pain reported now. RESPIRATORY: No shortness of breath. GASTROINTESTINAL: No nausea or vomiting. GENITOURINARY: No urgency, hematuria, frequency. NEUROLOGIC: No focal neurologic deficits. PSYCHIATRIC: No known history of psychiatric illness. PHYSICAL EXAMINATION: VITAL SIGNS: Temperature is 97.7, heart rate 69, blood pressure 124/58. GENERAL: A well-nourished, well developed male who is alert and oriented x3, condition. HEENT: Head normocephalic, atraumatic. Eyes anicteric. NECK: Supple. No JVD. No tenderness. No lymphadenopathy. HEART: Regular. A soft mid systolic murmur at the apex. PMI is minimally displaced. There is no thrill . ABDOMEN: Distended. Bowel sounds are present. There is no hepatosplenomegaly. GENITOURINARY: Intact. EXTREMITIES: No clubbing, cyanosis, or edema. LABORATORY: White blood cell count 10.7, hemoglobin is 9.9, platelets 214. Sodium 142, potassium 4.8, his BUN is 21, creatinine 1.37. Troponin is from 3.3 to 3.05. IMPRESSION AND PLAN: 1. A [id number]-jyyuuzhwe myocardial infarction. The patient is here with hic-HP-rzymhrepl myocardial infarction. Troponins are fairly stable in the setting of acute renal failure. Continue to treat the patient medically now. We will follow expectantly. 2. History of atrial fibrillation. Patient does not Lovenox. He is on amiodarone which is reasonable. 3. Right bundle branch block. Patient's right bundle branch block might be intermittent as there are some EKGs here where right bundle branch block is not present. He appears to be with narrow QRS on the telemetry. This might be a rate related phenomenon. We will continue to monitor now. There is no class I indication depending on issue of how this syncopal event actually happened. 4. Acute renal failure. Creatinine has improved to 1.4 to 1.37. Continue to monitor. Continue to avoid nephrotoxic medications. 5. Coronary artery disease. Patient has coronary artery disease and [id number] myocardial infarction. A stress test to follow once the patient is more stable. I would like to thank Dr. Gustafson for referring this patient for my evaluation. Dictated By: Jose Francisco Cameron MD /faye/denae /Document#: [id number]
[2017-02-02 08:36] LABS: CREATININE 1.58 mg/dl (0.61-1.24); MAGNESIUM 2.3 mg/dl (1.7-2.5); PHOSPHORUS 4.4 mg/dl (2.5-4.9)
[2017-02-02] MEDS: LAMOTRIGINE 25 MG TAB PO SCH ×2 (08:58→20:16)
[2017-02-02] MEDS: morphine (ER) 15 MG TAB PO SCH ×2 (08:59→20:14)
[2017-02-02] MEDS: ISOSORBIDE DINITRATE 20 MG TAB PO SCH ×2 (08:59→20:14)
[2017-02-02] MEDS: PANTOPRAZOLE (EC) 40 MG TAB PO SCH (09:00)
[2017-02-02] MEDS: AMIODARONE 200 MG TAB PO SCH (09:00)
[2017-02-02] MEDS: GABAPENTIN 300 MG CAP PO SCH ×3 (09:00→20:14)
[2017-02-02] MEDS: CIPROFLOXACIN 400MG/D5W 200 ML IVPB SCH ×2 (09:00→20:14)
[2017-02-02] MEDS: ASPIRIN (EC) 81 MG TAB PO SCH (09:00)
[2017-02-02] MEDS: DIVALPROEX (ER) 250 MG TAB PO SCH ×3 (09:00→20:15)
[2017-02-02] MEDS: ENOXAPARIN 80 MG/0.8 ML SYG SC SCH (09:01)
--- NOTE | 2017-02-02 13:31 | PN ---
Date/Time of Note Date/Time of Note DATE: 02/02/17 TIME: 13:27 Assessment/Plan VTE Prophylaxis VTE Prophylaxis Intervention: LMWH Lines/Catheters IV C[facility]ter [facility] (from [facility]): [place] Assessment/Plan Chief Complaint/Hosp Course Assessment and plan 1. Non-ST elevated myocardial infarction. Continue on therapeutic dose of Lovenox and oxygen as well as beta-rita and statin medication. Tapeman is following. echo pending 2. Status post mechanical fall. CT scan of the head showed early ischemic injury. further imaging per neurologist. continue with recommendations 3. UTI. Continue antibiotics for now. 4. Acute kidney injury. Medications to be renally dosed. monitor renal panel. continue with slot floorperson recs 5. Anemia of chronic disease. Stable at present. Follow-up on pending her level. Disposition and plan: on lovenox for now. PT to follow. follow up with cardiology recs. continue with inpatient monitoring Discussed plan of care with Dr. Landon Problems: Subjective 24 Hr Interval Summary Free Text/Dictation Resting at this time. No apparent distress seen. No reports of chest pain Exam/Review of Systems Vital Signs Vitals Vital Signs Date Time Temp Pulse Resp B/P Pulse Ox O2 Delivery O2 Flow Rate FiO2 02/02/17 12:17 56 02/02/17 12:10 97.9 18 126/58 97 02/02/17 08:25 Nasal Cannula 3.0 Intake and Output 02/01/17 02/01/17 02/02/17 15:00 23:00 07:00 Intake Total 200 ml 820 ml 400 ml Balance 200 ml 820 ml 400 ml Exam Constitutional: alert, oriented Psych: nl mood/affect Head: normocephalic Eyes: nl conjunctiva Respiratory: clear to auscultation Cardiovascular: other (regular rate ) Gastrointestinal: non-tender, soft Extremities: normal pulses Neurological: nl mental status, nl speech Skin: nl turgor Results Result Diagram: 02/02/17 0707 02/02/17 0707 Results 24 hrs Laboratory Tests Test 02/01/17 13:30 02/02/17 07:07 Urine Color YELLOW Urine Clarity CLEAR Urine pH 6.0 Urine Specific [place] 1.016 Urine Ketones NEGATIVE Urine Nitrite NEGATIVE Urine Bilirubin NEGATIVE Urine Urobilinogen 1+ H Urine Leukocyte Esterase 1+ H Urine Microscopic RBC 2 Urine Microscopic WBC 14 H Urine Hemoglobin NEGATIVE Urine Random Creatinine 145.89 Urine Random Sodium 81 Urine Glucose NEGATIVE Urine Total Protein 72.0 H White Blood Count 7.8 # Red Blood Count 3.02 L Hemoglobin 10.0 L Hematocrit 31.6 L Mean Corpuscular Volume 104.6 H Mean Corpuscular Hemoglobin 33.1 H Mean Corpuscular Hemoglobin Concent 31.6 L Red Cell Distribution Width 13.8 Platelet Count 164 # Mean Platelet Volume 10.2 Neutrophils % 48.4 Lymphocytes % 21.5 Monocytes % 25.1 H Eosinophils % 4.1 Basophils % 0.6 Nucleated Red Blood Cells % 0.0 Neutrophils # (Manual) 3.8 Lymphocytes # 1.7 Monocytes # 2.0 H Eosinophils # 0.3 Basophils # 0.1 Nucleated Red Blood Cells # 0.0 Sodium Level 140 Potassium Level 5.0 Chloride Level 104 Carbon Dioxide Level 28 Anion Gap 13 Blood Urea Nitrogen 25 H Creatinine 1.58 H Glucose Level 77 Calcium Level 8.0 L Phosphorus Level 4.4 Magnesium Level 2.3 Medications Medications Current Medications Enoxaparin Sodium (Lovenox) 70 mg Q12 SC Last administered on 02/02/17 09:01; Admin Dose 70 MG; Start 02/01/17 at 04:00 Nitroglycerin (Nitroglycerin (Sl Tab) 0.4 Mg) 1 tab Q5M PRN SL ANGINA Last administered on 02/01/17 05:07; Admin Dose 1 TAB; Start 02/01/17 at 04:00 Morphine Sulfate (morphine) 2 mg Q4H PRN IV PAIN Last administered on 04:16; Admin Dose 2 MG; Start 02/01/17 at 04:00 Miscellaneous Information (Pending Santyl Order For Wound Care) This patient becker... PRN PRN XX WOUND CARE; Start 02/01/17 at 06:00 Amiodarone HCl (Cordarone) 200 mg DAILY PO Last administered on 02/02/17 09:00 ; Admin Dose 200 MG; Start 02/01/17 at 09:00 Atorvastatin Calcium (Lipitor) 20 mg QHS PO Last administered on 02/01/17 20: 20; Admin Dose 20 MG; Start 02/01/17 at 21:00 Divalproex Sodium (Depakote Er) 250 mg TID PO Last administered on 02/02/17 09 :00; Admin Dose 250 MG; Start 02/01/17 at 09:00 Gabapentin (Neurontin) 300 mg TID PO Last administered on 02/02/17 09:00; Admin Dose 300 MG; Start 02/01/17 at 09:00 Isosorbide Dinitrate (Isordil) 20 mg Q12H PO Last administered on 02/02/17 08: 59; Admin Dose 20 MG; Start 02/01/17 at 07:30 Lamotrigine (Lamictal) 25 mg BID PO Last administered on 02/02/17 08:58; Admin Dose 25 MG; Start 02/01/17 at 09:00 Morphine Sulfate (Ms Contin (Er)) 15 mg Q12H PO Last administered on 02/02/17 08:59; Admin Dose 15 MG; Start 02/01/17 at 07:30 Pantoprazole (Protonix Tab) 40 mg DAILY PO Last administered on 02/02/17 09:00 ; Admin Dose 40 MG; Start 02/01/17 at 09:00 Tamsulosin HCl (Flomax) 0.4 mg HS PO Last administered on 02/01/17 20:19; Admin Dose 0.4 MG; Start 02/01/17 at 21:00 Trazodone HCl (Desyrel) 100 mg QHS PO Last administered on 02/01/17 20:29; Admin Dose 100 MG; Start 02/01/17 at 21:00 Zolpidem Tartrate (Ambien) 5 mg QHS PRN PO INSOMNIA; Start 02/01/17 at 07:30 Aspirin 81 mg 81 mg DAILY PO Last administered on 02/02/17 09:00; Admin Dose 81 MG; Start 02/01/17 at 09:00 Ciprofloxacin/ Dextrose (Cipro Ivpb) 200 ml @ 200 mls/hr Q12 IVPB Last administered on 02/02/17 09:00; Admin Dose 200 MLS/HR; Start 02/01/17 at 10:30 RADHA EISENBERG Feb 02, 2017 13:31
--- NOTE | 2017-02-02 16:24 | CONS ---
Date/Time of Note Date/Time of Note DATE: 02/02/17 TIME: 16:14 Assessment/Plan Assessment/Plan Chief Complaint/Hosp Course IMP: 1.Nstemi-decreasing enzyems 2.Chest pain-no current chest pain 3.HTN 4.PAD s/p L5. REnal failure 5. cardiac arrythmia-on amio in SR 6.BRadycardia Recc: -Tele -serial ecg's -Continue statin -Continue isordil -Not on BB given bradycardia -check TSH -Continue lovenox but change to daily dosing -follow renal function -trend cardiac enzymes Problems: Consultation Date/Type/Reason Admit Date/Time Jan 31, 2017 at 22:03 Initial Consult Date 02/01/2017 Type of Consultation: cardiology Reason for Consultation Nstemi Referring Provider: VINCENZO AQUINO MD Exam/Review of Systems Vital Signs Vitals Vital Signs Date Time Temp Pulse Resp B/P Pulse Ox O2 Delivery O2 Flow Rate FiO2 02/02/17 12:17 56 02/02/17 12:10 97.9 18 126/58 97 02/02/17 08:25 Nasal Cannula 3.0 Intake and Output 02/01/17 02/01/17 02/02/17 15:00 23:00 07:00 Intake Total 200 ml 820 ml 400 ml Balance 200 ml 820 ml 400 ml Exam Review of Systems: CONSTITUTIONAL: No fevers, chills. PULMONARY: No sob CARDIOVASCULAR: No chest pain/palpitations GASTROINTESTINAL: No nausea/vomiting. GENITOURINARY: No hematuria/dysuria. MUSCULOSKELETAL: No myagias/arthalgias. PSYCHIATRIC: The patient denies depression. NEUROLOGIC: No weakness Constitutional: alert, oriented Psych: no complaints Head: normocephalic ENMT: mucosa pink and moist Neck: jvd (8 cm water), supple Respiratory: clear to auscultation Cardiovascular: regular rate and rhythm Gastrointestinal: non-tender Musculoskeletal: muscle tone (normal) Extremities: edema (none) Neurological: other (No focal deficits) Results Result Diagram: 02/02/17 0707 02/02/17 0707 Results 24 hrs Laboratory Tests Test 02/02/17 07:07 White Blood Count 7.8 # Red Blood Count 3.02 L Hemoglobin 10.0 L Hematocrit 31.6 L Mean Corpuscular Volume 104.6 H Mean Corpuscular Hemoglobin 33.1 H Mean Corpuscular Hemoglobin Concent 31.6 L Red Cell Distribution Width 13.8 Platelet Count 164 # Mean Platelet Volume 10.2 Neutrophils % 48.4 Lymphocytes % 21.5 Monocytes % 25.1 H Eosinophils % 4.1 Basophils % 0.6 Nucleated Red Blood Cells % 0.0 Neutrophils # (Manual) 3.8 Lymphocytes # 1.7 Monocytes # 2.0 H Eosinophils # 0.3 Basophils # 0.1 Nucleated Red Blood Cells # 0.0 Sodium Level 140 Potassium Level 5.0 Chloride Level 104 Carbon Dioxide Level 28 Anion Gap 13 Blood Urea Nitrogen 25 H Creatinine 1.58 H Glucose Level 77 Calcium Level 8.0 L Phosphorus Level 4.4 Magnesium Level 2.3 Medications Medications Current Medications Enoxaparin Sodium (Lovenox) 70 mg Q12 SC Last administered on 02/02/17 09:01; Admin Dose 70 MG; Start 02/01/17 at 04:00 Nitroglycerin (Nitroglycerin (Sl Tab) 0.4 Mg) 1 tab Q5M PRN SL ANGINA Last administered on 02/01/17 05:07; Admin Dose 1 TAB; Start 02/01/17 at 04:00 Morphine Sulfate (morphine) 2 mg Q4H PRN IV PAIN Last administered on 04:16; Admin Dose 2 MG; Start 02/01/17 at 04:00 Miscellaneous Information (Pending Santyl Order For Wound Care) This patient becker... PRN PRN XX WOUND CARE; Start 02/01/17 at 06:00 Amiodarone HCl (Cordarone) 200 mg DAILY PO Last administered on 02/02/17 09:00 ; Admin Dose 200 MG; Start 02/01/17 at 09:00 Atorvastatin Calcium (Lipitor) 20 mg QHS PO Last administered on 02/01/17 20: 20; Admin Dose 20 MG; Start 02/01/17 at 21:00 Divalproex Sodium (Depakote Er) 250 mg TID PO Last administered on 02/02/17 14 :03; Admin Dose 250 MG; Start 02/01/17 at 09:00 Gabapentin (Neurontin) 300 mg TID PO Last administered on 02/02/17 14:03; Admin Dose 300 MG; Start 02/01/17 at 09:00 Isosorbide Dinitrate (Isordil) 20 mg Q12H PO Last administered on 02/02/17 08: 59; Admin Dose 20 MG; Start 02/01/17 at 07:30 Lamotrigine (Lamictal) 25 mg BID PO Last administered on 02/02/17 08:58; Admin Dose 25 MG; Start 02/01/17 at 09:00 Morphine Sulfate (Ms Contin (Er)) 15 mg Q12H PO Last administered on 02/02/17 08:59; Admin Dose 15 MG; Start 02/01/17 at 07:30 Pantoprazole (Protonix Tab) 40 mg DAILY PO Last administered on 02/02/17 09:00 ; Admin Dose 40 MG; Start 02/01/17 at 09:00 Tamsulosin HCl (Flomax) 0.4 mg HS PO Last administered on 02/01/17 20:19; Admin Dose 0.4 MG; Start 02/01/17 at 21:00 Trazodone HCl (Desyrel) 100 mg QHS PO Last administered on 02/01/17 20:29; Admin Dose 100 MG; Start 02/01/17 at 21:00 Zolpidem Tartrate (Ambien) 5 mg QHS PRN PO INSOMNIA; Start 02/01/17 at 07:30 Aspirin 81 mg 81 mg DAILY PO Last administered on 02/02/17 09:00; Admin Dose 81 MG; Start 02/01/17 at 09:00 Ciprofloxacin/ Dextrose (Cipro Ivpb) 200 ml @ 200 mls/hr Q12 IVPB Last administered on 02/02/17 09:00; Admin Dose 200 MLS/HR; Start 02/01/17 at 10:30 CHASE GOLDSMITH Feb 02, 2017 16:24
--- NOTE | 2017-02-02 18:31 | RADRPT ---
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 Physician: VINCENZO AQUINO Quality: Good Procedures: Transthoracic echocardiogram with complete 2D, M-Mode, and doppler examination. Indications: NSTEMI. 2D/M Mode Doppler Measurement Value Normal Ranges Measurement Value Normal Ranges LVIDd 2D 5.3 3.5 - 5.6 cm AV Peak Asael 1.5 m/sec LVIDs 2D 3.3 2.1 - 4.1 cm AV Peak PG 8.6 mmHg LVPWd 2D 1.2 0.6 - 1.1 cm LVOT Peak Asael 1.2 m/sec IVSd 2D 1.3 0.6 - 1.1 cm LVOT Peak PG 5.5 mmHg AoR Diam 2D 3.2 2.0 - 3.7 cm MV E Peak Asael 0.7 m/sec EDV 2D 137.5 cm3 MV A Peak Asael 0.8 m/sec ESV 2D 36.7 cm3 MV E/A 1.0 LA Dimen 2D 4.4 2.3 - 4.0 cm MV Decel Time 215 msec MV Decel Corson 3 MV E/A 1.0 TR Peak Asael 2.8 m/sec TR Peak PG 31.0 mmHg RVSP 34.0 mmHg Findings Left Ventricle: Normal left ventricular cavity size. Mild concentric left ventricular hypertrophy. Mild global left ventricular systolic dysfunction. Ejection fraction is visually estimated at 4045 %. Tissue Doppler/Mitral Doppler indices are consistent with impaired relaxation (Stage I diastolic dysfunction). These segments of the LV are hypokinetic apex, apical anterior segment, apical lateral segment, inferior apex segment and apical septum. Right Ventricle: Normal right ventricular size. Normal right ventricular systolic function. Left Atrium: There is mild enlargement of left atrium. Right Atrium: The right atrium is normal in size. Mitral Valve: Mitral valve leaflets appear mildly thickened. Mild mitral annular calcification. Trace mitral regurgitation. Aortic Valve: Normal appearance of the aortic valve. No significant aortic stenosis or insufficiency. Tricuspid Valve: Normal appearance of the tricuspid valve. Estimated peak PA systolic pressure 34 mmHg. There is mild tricuspid regurgitation. Pulmonic Valve: Normal pulmonic valve appearance. There is mild pulmonic regurgitation. Pericardium: Normal pericardium with no significant pericardial effusion. Aorta: Normal aortic root. IVC: Normal size and normal respiratory collapse consistent with normal right atrial pressure. Conclusions 1.Normal left ventricular cavity size. Mild concentric left ventricular hypertrophy. Mild global left ventricular systolic dysfunction. Ejection fraction is visually estimated at 40-45 %. Tissue Doppler/Mitral Doppler indices are consistent with impaired relaxation (Stage I diastolic dysfunction). These segments of the LV are hypokinetic apex, apical anterior segment, apical lateral segment, inferior apex segment and apical septum. 2.There is mild enlargement of left atrium. 3.Mitral valve leaflets appear mildly thickened. Mild mitral annular calcification. Trace mitral regurgitation. 4.Normal appearance of the tricuspid valve. Estimated peak PA systolic pressure 34 mmHg. There is mild tricuspid regurgitation. 5.Normal pulmonic valve appearance. There is mild pulmonic regurgitation. Electronically Signed By: Gavino Bazzi 02-Feb-2017 18:30:50 -0700 Patient Name: TOMEKA CAMPBELL Study Date: 01-Feb-2017 [id number]
[2017-02-02] MEDS: morphine 2 MG INJ IV PRN (20:13)
[2017-02-02] MEDS: ATORVASTATIN 20 MG TAB PO SCH (20:13)
[2017-02-02] MEDS: TAMSULOSIN (SR) 0.4 MG CAP PO SCH (20:14)
[2017-02-02] MEDS: traZODone 100 MG TAB PO SCH (20:16)
[2017-02-03] VITALS (12 sets, daily range): BP systolic 104–149; BP diastolic 53–65; PULSE 53–66; RESP 16–19
[2017-02-03] MEDS: morphine 2 MG INJ IV PRN ×4 (00:07→21:27)
--- NOTE | 2017-02-03 04:54 | PN ---
DATE: 02/02/2017 SUBJECTIVE: The patient is stable. No events overnight. No fevers, chills, nausea, vomiting. No shortness of breath. OBJECTIVE DATA: VITAL SIGNS: Blood pressure is 126/58, respirations 18, pulse 83, temperature 97.9. HEENT: Head is normocephalic. NECK: Supple. HEART: Regular rate. LUNGS: Diminished breath sounds at the base. ABDOMEN: Soft, nontender to palpation. No rebound or guarding. EXTREMITIES: Negative for clubbing and cyanosis. No edema. DERMATOLOGIC: Clean. No rashes. MUSCULOSKELETAL: No joint effusion. NEUROLOGIC: Unchanged exam. MEDICATIONS: Reviewed. LABORATORY AND DIAGNOSTIC DATA: Sodium 140, potassium [____], BUN 25, creatinine 1.58. White count 7.8, hemoglobin 10.0, hematocrit 31.6, platelet count 164. ASSESSMENT AND PLAN: 1. Nonoliguric acute kidney injury on top of chronic kidney disease with unknown baseline creatinine. Etiology of acute kidney injury is likely secondary to hemodynamics. The patient's urinalysis was reviewed. No evidence of active sediment. The patient's renal ultrasound shows bilateral renal cysts but no obstruction. The patient's renal function is fluctuating. At this point, we will continue to monitor closely. Supportive care. Renally dose all meds. 2. Anemia. Monitor hemoglobin and hematocrit levels. 3. Mineral bone disorder. Monitor calcium and phosphorus levels. 4. [____] Continue medical management. Follow up with Cardiology. 5. Urinary tract infection. Continue current antibiotic regimen. Dictated By: eLe James DO /faye/ronnie /Document#: [id number]
[2017-02-03 07:46] LABS: ABNORMAL IP MESSAGE 1; BASOPHILS % 0.5 % (0.0-2.0); EOSINOPHILS # 0.3 10^3/ul (0.0-0.5); EOSINOPHILS % 3.3 % (0.0-7.0); HEMATOCRIT 29.9 % (42.0-52.0); HEMOGLOBIN 9.6 g/dl (14.0-18.0); LYMPHOCYTES # 1.3 10^3/ul (0.8-2.9); LYMPHOCYTES % 14.7 % (15.0-51.0); MEAN CORPUSCULAR HEMOGLOBIN 33.1 pg (29.0-33.0); MEAN CORPUSCULAR HGB CONC 32.1 g/dl (32.0-37.0); MEAN CORPUSCULAR VOLUME 103.1 fl (82.0-101.0); MEAN PLATELET VOLUME 10.5 fl (7.4-10.4); MONOCYTE # 2.5 10^3/ul (0.3-0.9); MONOCYTES % 29.3 % (0.0-11.0); PLATELET COUNT 178 10^3/UL (140-415); POSITIVE DIFF @See below; RED CELL DISTRIBUTION WIDTH 13.6 % (11.5-14.5); WHITE BLOOD COUNT 8.6 10^3/ul (4.8-10.8)
[2017-02-03] MEDS: ASPIRIN (EC) 81 MG TAB PO SCH (08:09)
[2017-02-03] MEDS: DIVALPROEX (ER) 250 MG TAB PO SCH ×3 (08:09→20:26)
[2017-02-03] MEDS: GABAPENTIN 300 MG CAP PO SCH ×3 (08:09→20:26)
[2017-02-03] MEDS: PANTOPRAZOLE (EC) 40 MG TAB PO SCH (08:11)
[2017-02-03] MEDS: morphine (ER) 15 MG TAB PO SCH ×2 (08:11→20:26)
[2017-02-03] MEDS: LAMOTRIGINE 25 MG TAB PO SCH ×2 (08:11→20:26)
[2017-02-03] MEDS: CIPROFLOXACIN 400MG/D5W 200 ML IVPB SCH ×2 (08:12→20:25)
[2017-02-03 08:13] LABS: CK-MB 1.88 ng/ml (0.0-2.4); TROPONIN-I 1.47 ng/ml (0.00-0.12)
[2017-02-03 08:19] LABS: CALCIUM 7.9 mg/dl (8.4-10.2); CREATININE 1.46 mg/dl (0.61-1.24); POTASSIUM 5.3 mmol/L (3.5-5.1)
[2017-02-03] MEDS: ENOXAPARIN 80 MG/0.8 ML SYG SC SCH (08:21)
--- NOTE | 2017-02-03 10:34 | PN ---
DATE: 02/03/2017 SUBJECTIVE: The patient is stable. No events overnight. No fevers, chills, nausea, or vomiting. OBJECTIVE DATA: VITAL SIGNS: Blood pressure 104/53, respirations 19, pulse 63, and temperature 98.4. HEENT: Head is normocephalic. NECK: Supple. HEART: Regular rate. LUNGS: Diminished breath sounds at the base. ABDOMEN: Soft, nontender to palpation. No rebound or guarding. EXTREMITIES: Negative for clubbing and cyanosis. No edema. DERMATOLOGIC: Clean. No rashes. MUSCULOSKELETAL: No joint effusion. NEUROLOGIC: Unchanged exam. MEDICATIONS: Reviewed. LABORATORY AND DIAGNOSTIC DATA: Shows sodium 145, potassium 5.2, BUN 26, creatinine 1.46. White count 8.6, hemoglobin 9.6, hematocrit 29.9, and platelet count is 178. ASSESSMENT AND PLAN: 1. Nonoliguric acute kidney injury on top of chronic kidney disease with unknown baseline creatinine. Etiology secondary to hemodynamics. Renal function appears to be slowly improving. Continue current treatment plan. Supportive care. Renally dose all meds. 2. Hyperkalemia, mild. The patient will be placed on a low potassium diet. Will continue to monitor closely. 3. Hyponatremia. We will encourage free water intake. 4. Anemia. Monitor hemoglobin and hematocrit levels. 5. Mineral bone disorder. Monitor calcium and phosphorus levels. 6. Non-ST elevation myocardial infarction. Continue current medical management. 7. Urinary tract infection. Continue current antibiotic regimen. Dictated By: Lee James DO /faye/ronnie /Document#: [id number]
--- NOTE | 2017-02-03 11:44 | PN ---
Date/Time of Note Date/Time of Note DATE: 02/03/17 TIME: 11:38 Assessment/Plan VTE Prophylaxis VTE Prophylaxis Intervention: LMWH Lines/Catheters IV C[facility]ter Type (from [facility] Saline Lock Assessment/Plan Chief Complaint/Hosp Course Assessment and plan 1. Non-ST elevated myocardial infarction. 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 continue statin and beta rita. 2. Status post mechanical fall. CT scan of the head showed early ischemic injury. further imaging per neurologist. continue with recommendations . Will get PT to evaluate 3. UTI. Continue antibiotics for now. 4. Acute kidney injury. stable. continue with utilization specialist recs 5. Anemia of chronic disease. Stable at present. monitor H&H Disposition and plan: PT eval pending. follow up with case management for possible snf placement. d/c when medically stable and cleared by consultants Discussed plan of care with Dr. Landon Problems: Subjective 24 Hr Interval Summary Free Text/Dictation denies any chest pain. comfortable at present Exam/Review of Systems Vital Signs Vitals Vital Signs Date Time Temp Pulse Resp B/P Pulse Ox O2 Delivery O2 Flow Rate FiO2 02/03/17 08:16 53 02/03/17 08:15 Nasal Cannula 3.0 02/03/17 07:53 98.4 19 104/53 93 Intake and Output 02/02/17 02/02/17 02/03/17 15:00 23:00 07:00 Intake Total 200 ml 600 ml Output Total 800 ml Balance 200 ml -200 ml Exam Constitutional: alert, oriented, [place] Psych: nl mood/affect Head: normocephalic Eyes: nl conjunctiva Respiratory: clear to auscultation Cardiovascular: other (regular rate ) Gastrointestinal: non-tender, soft Extremities: normal pulses Neurological: nl mental status, nl speech Skin: nl turgor Results Result Diagram: 02/03/17 0704 02/03/17 0704 Results 24 hrs Laboratory Tests Test 02/02/17 17:18 02/03/17 07:04 Thyroid Stimulating Hormone (TSH) 1.240 White Blood Count 8.6 Red Blood Count 2.90 L Hemoglobin 9.6 L Hematocrit 29.9 L Mean Corpuscular Volume 103.1 H Mean Corpuscular Hemoglobin 33.1 H Mean Corpuscular Hemoglobin Concent 32.1 Red Cell Distribution Width 13.6 Platelet Count 178 Mean Platelet Volume 10.5 H Neutrophils % 52.0 Lymphocytes % 14.7 L Monocytes % 29.3 H Eosinophils % 3.3 Basophils % 0.5 Nucleated Red Blood Cells % 0.0 Neutrophils # (Manual) 4.5 Lymphocytes # 1.3 Monocytes # 2.5 H Eosinophils # 0.3 Basophils # 0.0 Nucleated Red Blood Cells # 0.0 Sodium Level 145 H Potassium Level 5.3 H Chloride Level 108 Carbon Dioxide Level 29 Anion Gap 13 Blood Urea Nitrogen 26 H Creatinine 1.46 H Glucose Level 92 Calcium Level 7.9 L Phosphorus Level 4.0 Magnesium Level 2.0 Creatine Kinase 56 Creatine Kinase Index 3.4 Creatinine Kinase MB (Mass) 1.88 Troponin I 1.470 *H Triglycerides Level 46 Cholesterol Level 93 L LDL Cholesterol, Calculated 38 HDL Cholesterol 46 Cholesterol/HDL Ratio 2.0 Medications Medications Current Medications Nitroglycerin (Nitroglycerin (Sl Tab) 0.4 Mg) 1 tab Q5M PRN SL ANGINA Last administered on 02/01/17 05:07; Admin Dose 1 TAB; Start 02/01/17 at 04:00 Morphine Sulfate (morphine) 2 mg Q4H PRN IV PAIN Last administered on 00:07; Admin Dose 2 MG; Start 02/01/17 at 04:00 [facility] This patient becker... PRN PRN XX WOUND CARE; Start 02/01/17 at 06:00 Amiodarone HCl (Cordarone) 200 mg DAILY PO Last administered on 02/02/17 09:00 ; Admin Dose 200 MG; Start 02/01/17 at 09:00 Atorvastatin Calcium (Lipitor) 20 mg QHS PO Last administered on 02/02/17 20: 13; Admin Dose 20 MG; Start 02/01/17 at 21:00 Divalproex Sodium (Depakote Er) 250 mg TID PO Last administered on 02/03/17 08 :09; Admin Dose 250 MG; Start 02/01/17 at 09:00 Gabapentin (Neurontin) 300 mg TID PO Last administered on 02/03/17 08:09; Admin Dose 300 MG; Start 02/01/17 at 09:00 Isosorbide Dinitrate (Isordil) 20 mg Q12H PO Last administered on 02/02/17 20: 14; Admin Dose 20 MG; Start 02/01/17 at 07:30 Lamotrigine (Lamictal) 25 mg BID PO Last administered on 02/03/17 08:11; Admin Dose 25 MG; Start 02/01/17 at 09:00 Morphine Sulfate (Ms Contin (Er)) 15 mg Q12H PO Last administered on 02/03/17 08:11; Admin Dose 15 MG; Start 02/01/17 at 07:30 Pantoprazole (Protonix Tab) 40 mg DAILY PO Last administered on 02/03/17 08:11 ; Admin Dose 40 MG; Start 02/01/17 at 09:00 Tamsulosin HCl (Flomax) 0.4 mg HS PO Last administered on 02/02/17 20:14; Admin Dose 0.4 MG; Start 02/01/17 at 21:00 Trazodone HCl (Desyrel) 100 mg QHS PO Last administered on 02/02/17 20:16; Admin Dose 100 MG; Start 02/01/17 at 21:00 Zolpidem Tartrate (Ambien) 5 mg QHS PRN PO INSOMNIA; Start 02/01/17 at 07:30 Aspirin 81 mg 81 mg DAILY PO Last administered on 02/03/17 08:09; Admin Dose 81 MG; Start 02/01/17 at 09:00 Ciprofloxacin/ Dextrose (Cipro Ivpb) 200 ml @ 200 mls/hr Q12 IVPB Last administered on 02/03/17 08:12; Admin Dose 200 MLS/HR; Start 02/01/17 at 10:30 Enoxaparin Sodium (Lovenox) 70 mg DAILY SC Last administered on 02/03/17 08:21 ; Admin Dose 70 MG; Start 02/03/17 at 09:00 RADHA EISENBERG Feb 03, 2017 11:43
[2017-02-03] MEDS: AMIODARONE 200 MG TAB PO SCH (13:50)
[2017-02-03] MEDS: ISOSORBIDE DINITRATE 20 MG TAB PO SCH ×2 (13:51→20:26)
[2017-02-03 16:07] LABS: CREATININE 1.3 mg/dl (0.61-1.24)
[2017-02-03] MEDS: ATORVASTATIN 20 MG TAB PO SCH (20:26)
[2017-02-03] MEDS: TAMSULOSIN (SR) 0.4 MG CAP PO SCH (20:26)
[2017-02-03] MEDS: traZODone 100 MG TAB PO SCH (20:26)
--- NOTE | 2017-02-03 21:44 | CONS ---
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 REnal failure 5. cardiac arrythmia-on amio in SR 6.BRadycardia Recc: -Tele -serial ecg's -Continue statin -Continue isordil -Not on BB given bradycardia -Continue lovenox but change to daily dosing -Continue asa -plavix at d/c -LHC early next week if remains in house given renal function improving -follow renal function -trend cardiac enzymes Problems: Consultation Date/Type/Reason Admit Date/Time Jan 31, 2017 at 22:03 Initial Consult Date 02/01/2017 Type of Consultation: cardiology Reason for Consultation nstemi Referring Provider: VINCENZO AQUINO MD Exam/Review of Systems Vital Signs Vitals Vital Signs Date Time Temp Pulse Resp B/P Pulse Ox O2 Delivery O2 Flow Rate FiO2 02/03/17 21:29 3.0 02/03/17 20:18 98.2 63 16 133/62 95 02/03/17 08:15 Nasal Cannula Intake and Output 02/02/17 02/02/17 02/03/17 15:00 23:00 07:00 Intake Total 200 ml 600 ml Output Total 800 ml Balance 200 ml -200 ml Exam Review of Systems: CONSTITUTIONAL: No fevers, chills. PULMONARY: No sob CARDIOVASCULAR: No chest pain/palpitations GASTROINTESTINAL: No nausea/vomiting. GENITOURINARY: No hematuria/dysuria. MUSCULOSKELETAL: No myagias/arthalgias. PSYCHIATRIC: The patient denies depression. NEUROLOGIC: No weakness Constitutional: alert, oriented Psych: no complaints Head: normocephalic ENMT: mucosa pink and moist Neck: jvd (9 cm water), supple Respiratory: diminished breath sounds (at bases/B) Cardiovascular: regular rate and rhythm Gastrointestinal: non-tender, soft Musculoskeletal: muscle tone (normal) Extremities: edema (trace/B) Neurological: other Results Result Diagram: 02/03/17 0704 02/03/17 1522 Results 24 hrs Laboratory Tests Test 02/03/17 07:04 02/03/17 15:22 White Blood Count 8.6 Red Blood Count 2.90 L Hemoglobin 9.6 L Hematocrit 29.9 L Mean Corpuscular Volume 103.1 H Mean Corpuscular Hemoglobin 33.1 H Mean Corpuscular Hemoglobin Concent 32.1 Red Cell Distribution Width 13.6 Platelet Count 178 Mean Platelet Volume 10.5 H Neutrophils % 52.0 Lymphocytes % 14.7 L Monocytes % 29.3 H Eosinophils % 3.3 Basophils % 0.5 Nucleated Red Blood Cells % 0.0 Neutrophils # (Manual) 4.5 Lymphocytes # 1.3 Monocytes # 2.5 H Eosinophils # 0.3 Basophils # 0.0 Nucleated Red Blood Cells # 0.0 Sodium Level 145 H 140 Potassium Level 5.3 H 5.0 Chloride Level 108 104 Carbon Dioxide Level 29 29 Anion Gap 13 12 Blood Urea Nitrogen 26 H 29 H Creatinine 1.46 H 1.30 H Glucose Level 92 106 Calcium Level 7.9 L 8.0 L Phosphorus Level 4.0 Magnesium Level 2.0 Creatine Kinase 56 Creatine Kinase Index 3.4 Creatinine Kinase MB (Mass) 1.88 Troponin I 1.470 *H Triglycerides Level 46 Cholesterol Level 93 L LDL Cholesterol, Calculated 38 HDL Cholesterol 46 Cholesterol/HDL Ratio 2.0 Medications Medications Current Medications Nitroglycerin (Nitroglycerin (Sl Tab) 0.4 Mg) 1 tab Q5M PRN SL ANGINA Last administered on 02/01/17 05:07; Admin Dose 1 TAB; Start 02/01/17 at 04:00 Morphine Sulfate (morphine) 2 mg Q4H PRN IV PAIN Last administered on 21:27; Admin Dose 2 MG; Start 02/01/17 at 04:00 Miscellaneous Information (Pending [facility] Order For Wound Care) This patient becker... PRN PRN XX WOUND CARE; Start 02/01/17 at 06:00 Amiodarone HCl (Cordarone) 200 mg DAILY PO Last administered on 02/03/17 13:50 ; Admin Dose 200 MG; Start 02/01/17 at 09:00 Atorvastatin Calcium (Lipitor) 20 mg QHS PO Last administered on 02/03/17 20: 26; Admin Dose 20 MG; Start 02/01/17 at 21:00 Divalproex Sodium (Depakote Er) 250 mg TID PO Last administered on 02/03/17 20 :26; Admin Dose 250 MG; Start 02/01/17 at 09:00 Gabapentin (Neurontin) 300 mg TID PO Last administered on 02/03/17 20:26; Admin Dose 300 MG; Start 02/01/17 at 09:00 Isosorbide Dinitrate (Isordil) 20 mg Q12H PO Last administered on 02/03/17 20: 26; Admin Dose 20 MG; Start 02/01/17 at 07:30 Lamotrigine (Lamictal) 25 mg BID PO Last administered on 02/03/17 20:26; Admin Dose 25 MG; Start 02/01/17 at 09:00 Morphine Sulfate (Ms Contin (Er)) 15 mg Q12H PO Last administered on 02/03/17 20:26; Admin Dose 15 MG; Start 02/01/17 at 07:30 Pantoprazole (Protonix Tab) 40 mg DAILY PO Last administered on 02/03/17 08:11 ; Admin Dose 40 MG; Start 02/01/17 at 09:00 Tamsulosin HCl (Flomax) 0.4 mg HS PO Last administered on 02/03/17 20:26; Admin Dose 0.4 MG; Start 02/01/17 at 21:00 Trazodone HCl (Desyrel) 100 mg QHS PO Last administered on 02/03/17 20:26; Admin Dose 100 MG; Start 02/01/17 at 21:00 Zolpidem Tartrate (Ambien) 5 mg QHS PRN PO INSOMNIA; Start 02/01/17 at 07:30 Aspirin 81 mg 81 mg DAILY PO Last administered on 02/03/17 08:09; Admin Dose 81 MG; Start 02/01/17 at 09:00 Ciprofloxacin/ Dextrose (Cipro Ivpb) 200 ml @ 200 mls/hr Q12 IVPB Last administered on 02/03/17 20:25; Admin Dose 200 MLS/HR; Start 02/01/17 at 10:30 Enoxaparin Sodium (Lovenox) 70 mg DAILY SC Last administered on 02/03/17 08:21 ; Admin Dose 70 MG; Start 02/03/17 at 09:00 CHASE GOLDSMITH Feb 03, 2017 21:43
[2017-02-04] VITALS (19 sets, daily range): BP systolic 111–169; BP diastolic 48–93; PULSE 36–71; RESP 16–29
[2017-02-04] MEDS ORDERED: DIPHENHYDRAMINE 50 MG CAP PO ONE (08:00)
[2017-02-04] MEDS ORDERED: DIAZEPAM 5 MG TAB PO ONE (08:00)
--- NOTE | 2017-02-04 08:23 | RADRPT ---
PROCEDURE: XR Chest. CLINICAL INDICATION: 76-year-old male with congestive heart failure. TECHNIQUE: PA and Lateral views of the chest were obtained. COMPARISON: None. FINDINGS: The soft tissues are normal. There are degenerative osteophytes in the thoracic spine. Monitoring electrodes project over the chest. The heart is enlarged. The cardiomediastinal silhouette and hil ar structures are normal. The pulmonary vasculature is equilibrated. There are vascular calcificatio ns in the aortic arch. There is a plate-like density on the right heart border suspicious for atelec tasis. There is no convincing evidence of pulmonary edema. The patient is rotated. The costophren ic angles are normal. IMPRESSION: 1. Cardiomegaly with plate-like atelectasis in the right lower lung field. 2. Equilibration the pulmonary vasculature without evidence of pulmonary edema at this time. This finding may be associated with mild CHF. RPTAT:AAJJ Physician Senthil Date Time Electronically viewed and signed by Physician Senthil on 02/04/2017 08:23 ERIBERTO/
[2017-02-04] MEDS: GABAPENTIN 300 MG CAP PO SCH ×3 (08:50→20:51)
[2017-02-04] MEDS: DIVALPROEX (ER) 250 MG TAB PO SCH ×2 (08:50→21:36)
[2017-02-04] MEDS: AMIODARONE 200 MG TAB PO SCH (08:51)
[2017-02-04] MEDS: PANTOPRAZOLE (EC) 40 MG TAB PO SCH (08:51)
[2017-02-04] MEDS: LAMOTRIGINE 25 MG TAB PO SCH ×2 (08:51→21:00)
[2017-02-04] MEDS: ISOSORBIDE DINITRATE 20 MG TAB PO SCH ×2 (08:51→21:27)
[2017-02-04] MEDS: ASPIRIN (EC) 81 MG TAB PO SCH (08:51)
[2017-02-04] MEDS: CIPROFLOXACIN 400MG/D5W 200 ML IVPB SCH (08:52)
[2017-02-04] MEDS: morphine (ER) 15 MG TAB PO SCH ×2 (08:52→22:04)
[2017-02-04 08:56] LABS: CALCIUM 8.3 mg/dl (8.4-10.2); CREATININE 1.23 mg/dl (0.61-1.24); PHOSPHORUS 3.4 mg/dl (2.5-4.9); POTASSIUM 5.3 mmol/L (3.5-5.1)
[2017-02-04 09:01] LABS: CK-MB 1.23 ng/ml (0.0-2.4); TROPONIN-I 0.732 ng/ml (0.00-0.12)
--- NOTE | 2017-02-04 11:16 | PN ---
DATE: 02/04/2017 SUBJECTIVE DATA: The patient is stable. No acute events overnight. No fevers, chills, nausea, vomiting. No shortness of breath. OBJECTIVE DATA: VITAL SIGNS: Blood pressure is 123/58, respirations 19, pulse 69, temperature 98.3. HEENT: Head is normocephalic. NECK: Supple. HEART: Regular rate. LUNGS: Diminished breath sounds base. ABDOMEN: Soft, nontender to palpation. No guarding. EXTREMITIES: Negative for clubbing, cyanosis. No edema. DERMATOLOGIC: No rashes. MUSCULOSKELETAL: No joint effusion. NEUROLOGIC: No change in exam. MEDICATIONS: Reviewed. LABORATORY AND DIAGNOSTIC DATA: Sodium 139, potassium 5.3, chloride 108, BUN 27, creatinine 1.23. Patient's CBC is pending. ASSESSMENT AND PLAN: 1. Nonoliguric acute kidney injury on top of chronic kidney disease with unknown baseline creatinine. Etiology secondary to hemodynamics. Renal function is improving. Continue current treatment. Supportive care. Renally dose all meds. 2. Hypokalemia, mild. Continue to monitor. Continue low- potassium diet. 3. Hypernatremia, resolved. 4. Anemia. Monitor H and H levels. 5. Mineral bone disorder. Monitor calcium and phosphorus. 6. . Continue current medical management. 7. Urinary tract infection. Continue current antibiotic regimen. Dictated By: Lee James DO /faye/fam /Document#: [id number]
[2017-02-04 11:25] LABS: ABNORMAL IP MESSAGE 1; BASOPHILS % 0.3 % (0.0-2.0); EOSINOPHILS # 0.3 10^3/ul (0.0-0.5); EOSINOPHILS % 2.8 % (0.0-7.0); HEMATOCRIT 31.2 % (42.0-52.0); HEMOGLOBIN 9.9 g/dl (14.0-18.0); LYMPHOCYTES # 1.3 10^3/ul (0.8-2.9); LYMPHOCYTES % 12.9 % (15.0-51.0); MEAN CORPUSCULAR HGB CONC 31.7 g/dl (32.0-37.0); MEAN PLATELET VOLUME 10.7 fl (7.4-10.4); MONOCYTE # 2.6 10^3/ul (0.3-0.9); NEUTROPHILS % 57.6 % (39.0-77.0); PLATELET COUNT 183 10^3/UL (140-415); POSITIVE DIFF @See below; RED CELL DISTRIBUTION WIDTH 13.8 % (11.5-14.5); WHITE BLOOD COUNT 9.9 10^3/ul (4.8-10.8)
[2017-02-04] MEDS ORDERED: LIDOCAINE 1% (MDV) 20 ML INJ ONE (12:04)
[2017-02-04] MEDS ORDERED: VERAPAMIL 5 MG INJ ONE (12:04)
[2017-02-04] MEDS ORDERED: IODIXANOL LOCM 100 ML BTL ONE (12:04)
[2017-02-04] MEDS ORDERED: HEPARIN 1000 UNITS/ML 10 ML INJ ONE (12:05)
[2017-02-04] MEDS ORDERED: NITROGLYCERIN (IC) 100 MCG/ML INJ ONE (12:05)
[2017-02-04] MEDS ORDERED: SOD CHLORIDE 0.9% 500 ML ONE (12:08)
[2017-02-04] MEDS ORDERED: FENTAnyl 50 MCG/ML VIAL ONE (12:08)
[2017-02-04] MEDS ORDERED: MIDAZOLAM 1 MG/ML 2 ML INJ ONE (12:08)
--- NOTE | 2017-02-04 13:00 | PN ---
Date/Time of Note Date/Time of Note DATE: 02/04/17 TIME: 12:51 Assessment/Plan VTE Prophylaxis VTE Prophylaxis Intervention: LMWH Lines/Catheters IV Catheter Type (from Nrs): Saline Lock Assessment/Plan Assessment/Plan 1. Non-ST elevated myocardial infarction. coronary angiography today 2. Ischemic cardiomyopathy, congestive heart failure, systolic with LVEF 40-45% , on coreg and losartan 3. UTI. Continue antibiotics for now. 4. Acute kidney injury. resolved 5. Macrocytic anemia, Stable 6. Status post mechanical fall. 7. DVT prophylaxis, on lovenox Subjective 24 Hr Interval Summary Free Text/Dictation no chest pain. no fever or chills. Exam/Review of Systems Vital Signs Vitals Vital Signs Date Time Temp Pulse Resp B/P Pulse Ox O2 Delivery O2 Flow Rate FiO2 02/04/17 12:04 61 02/04/17 11:49 98.0 19 169/58 98 02/04/17 08:15 Nasal Cannula 3.0 Intake and Output 02/03/17 02/03/17 02/04/17 15:00 23:00 07:00 Intake Total 500 ml 300 ml Output Total 700 ml 1000 ml Balance -200 ml -700 ml Exam Constitutional: alert, oriented, well developed Head: atraumatic, normocephalic Eyes: EOMI, nl conjunctiva, nl lids ENMT: nl external ears & nose, nl lips & teeth, nl nasal mucosa & septum Neck: non-tender, supple Respiratory: clear to auscultation, normal air movement, No congested cough, No crackles/rales, No diminished breath sounds, No intercostal retraction, No labored breathing, No other, No respirations, No tactile fremitus, No wheezing Cardiovascular: nl pulses, regular rate and rhythm, No S3, No S4, No bruits, No diastolic murmur, No edema, No gallop, No irregular rhythm, No jugular venous distention (JVD), No murmurs/extra sounds, No other, No rub, No systolic murmur Gastrointestinal: nl liver, spleen, non-tender, soft, No ascites, No bowel sounds, No distended, No firm, No hepatomegaly, No mass , No other, No rebound or guarding, No splenomegaly, No surgical scars, No tender Musculoskeletal: nl extremities to inspection Neurological: [employer] II-XII intact, nl mental status, nl speech, nl strength Skin: nl turgor Lymph: nl lymph nodes Results Result Diagram: 02/04/17 1041 02/04/17 0722 Results 24 hrs Laboratory Tests Test 02/03/17 15:22 02/04/17 07:22 02/04/17 10:41 Sodium Level 140 139 Potassium Level 5.0 5.3 H Chloride Level 104 108 Carbon Dioxide Level 29 29 Anion Gap 12 7 L Blood Urea Nitrogen 29 H 27 H Creatinine 1.30 H 1.23 Glucose Level 106 79 Calcium Level 8.0 L 8.3 L Phosphorus Level 3.4 Magnesium Level 2.0 Creatine Kinase 36 Creatine Kinase Index 3.4 Creatinine Kinase MB (Mass) 1.23 Troponin I 0.732 *H White Blood Count 9.9 Red Blood Count 3.00 L Hemoglobin 9.9 L Hematocrit 31.2 L Mean Corpuscular Volume 104.0 H Mean Corpuscular Hemoglobin 33.0 Mean Corpuscular Hemoglobin Concent 31.7 L Red Cell Distribution Width 13.8 Platelet Count 183 Mean Platelet Volume 10.7 H Neutrophils % 57.6 Lymphocytes % 12.9 L Monocytes % 26.0 H Eosinophils % 2.8 Basophils % 0.3 Nucleated Red Blood Cells % 0.0 Neutrophils # (Manual) 5.7 Lymphocytes # 1.3 Monocytes # 2.6 H Eosinophils # 0.3 Basophils # 0.0 Nucleated Red Blood Cells # 0.0 Medications Medications Current Medications Nitroglycerin (Nitroglycerin (Sl Tab) 0.4 Mg) 1 tab Q5M PRN SL ANGINA Last administered on 02/01/17 05:07; Admin Dose 1 TAB; Start 02/01/17 at 04:00 Morphine Sulfate (morphine) 2 mg Q4H PRN IV PAIN Last administered on 21:27; Admin Dose 2 MG; Start 02/01/17 at 04:00 [facility] This patient becker... PRN PRN XX WOUND CARE; Start 02/01/17 at 06:00 Amiodarone HCl (Cordarone) 200 mg DAILY PO Last administered on 02/04/17 08:51 ; Admin Dose 200 MG; Start 02/01/17 at 09:00 Atorvastatin Calcium (Lipitor) 20 mg QHS PO Last administered on 02/03/17 20: 26; Admin Dose 20 MG; Start 02/01/17 at 21:00 Divalproex Sodium (Depakote Er) 250 mg TID PO Last administered on 02/04/17 08: 50; Admin Dose 250 MG; Start 02/01/17 at 09:00 Gabapentin (Neurontin) 300 mg TID PO Last administered on 02/04/17 08:50; Admin Dose 300 MG; Start 02/01/17 at 09:00 Isosorbide Dinitrate (Isordil) 20 mg Q12H PO Last administered on 02/04/17 08: 51; Admin Dose 20 MG; Start 02/01/17 at 07:30 Lamotrigine (Lamictal) 25 mg BID PO Last administered on 02/04/17 08:51; Admin Dose 25 MG; Start 02/01/17 at 09:00 Morphine Sulfate (Ms Contin (Er)) 15 mg Q12H PO Last administered on 02/04/17 08:52; Admin Dose 15 MG; Start 02/01/17 at 07:30 Pantoprazole (Protonix Tab) 40 mg DAILY PO Last administered on 02/04/17 08:51 ; Admin Dose 40 MG; Start 02/01/17 at 09:00 Tamsulosin HCl (Flomax) 0.4 mg HS PO Last administered on 02/03/17 20:26; Admin Dose 0.4 MG; Start 02/01/17 at 21:00 Trazodone HCl (Desyrel) 100 mg QHS PO Last administered on 02/03/17 20:26; Admin Dose 100 MG; Start 02/01/17 at 21:00 Zolpidem Tartrate (Ambien) 5 mg QHS PRN PO INSOMNIA; Start 02/01/17 at 07:30 Aspirin (Halfprin) 81 mg DAILY PO Last administered on 02/04/17 08:51; Admin Dose 81 MG; Start 02/01/17 at 09:00 Enoxaparin Sodium (Lovenox) 70 mg DAILY SC Last administered on 02/03/17 08:21 ; Admin Dose 70 MG; Start 02/03/17 at 09:00 Ciprofloxacin (Cipro) 500 mg BID@18 PO ; Start 02/04/17 at 18:00 SHANNAN WOOD MD Feb 04, 2017 13:00
[2017-02-04] MEDS ORDERED: IODIXANOL LOCM 50 ML BTL ONE (13:20)
[2017-02-04] MEDS ORDERED: TICAGRELOR 90 MG TABLET ONE (13:38)
[2017-02-04] MEDS ORDERED: ASPIRIN 325 MG TAB ONE (13:38)
--- NOTE | 2017-02-04 13:55 | CONS ---
Date/Time of Note Date/Time of Note DATE: 02/04/17 TIME: 13:49 Assessment/Plan Assessment/Plan Chief Complaint/Hosp Course IMP: 1.Nstemi-decreasing enzymes now POD#0 s/p PTCA/stent to LAD with SARAH. Also had 100% RCA with L-R collateral circulation at time of cath 2.Chest pain-no current chest pain 3.HTN 4.PAD 5. cardiac arrythmia-on amio in SR 6.Bradycardia 7. Renal failure-improving slowly Recc: -Tele/ICU post op -serial ecg's -Continue statin -Continue isordil -Not on BB given bradycardia -Continue asa and now brilinta -follow renal function closely now s/p LHC with PTCA/stent x 1 to mid LAD for high grade stenosis Problems: Consultation Date/Type/Reason Admit Date/Time Jan 31, 2017 at 22:03 Initial Consult Date 02/01/2017 Type of Consultation: cardiology Reason for Consultation Nstemi Referring Provider: VINCENZO AQUINO MD Exam/Review of Systems Vital Signs Vitals Vital Signs Date Time Temp Pulse Resp B/P Pulse Ox O2 Delivery O2 Flow Rate FiO2 02/04/17 12:04 61 02/04/17 11:49 98.0 19 169/58 98 02/04/17 08:15 Nasal Cannula 3.0 Intake and Output 02/03/17 02/03/17 02/04/17 15:00 23:00 07:00 Intake Total 500 ml 300 ml Output Total 700 ml 1000 ml Balance -200 ml -700 ml Exam Review of Systems: CONSTITUTIONAL: No fevers, chills. PULMONARY: No sob CARDIOVASCULAR: intermittent chest pain GASTROINTESTINAL: No nausea/vomiting. GENITOURINARY: No hematuria/dysuria. MUSCULOSKELETAL: No myagias/arthalgias. PSYCHIATRIC: The patient denies depression. NEUROLOGIC: No weakness Constitutional: alert Psych: no complaints Head: normocephalic ENMT: mucosa pink and moist Neck: jvd (9 cm water), supple Respiratory: diminished breath sounds Cardiovascular: regular rate and rhythm Gastrointestinal: non-tender, soft Musculoskeletal: muscle tone (normal) Extremities: edema (none) Neurological: other (No focal deficits) Results Result Diagram: 02/04/17 1041 02/04/17 0722 Results 24 hrs Laboratory Tests Test 02/03/17 15:22 02/04/17 07:22 02/04/17 10:41 Sodium Level 140 139 Potassium Level 5.0 5.3 H Chloride Level 104 108 Carbon Dioxide Level 29 29 Anion Gap 12 7 L Blood Urea Nitrogen 29 H 27 H Creatinine 1.30 H 1.23 Glucose Level 106 79 Calcium Level 8.0 L 8.3 L Phosphorus Level 3.4 Magnesium Level 2.0 Creatine Kinase 36 Creatine Kinase Index 3.4 Creatinine Kinase MB (Mass) 1.23 Troponin I 0.732 *H White Blood Count 9.9 Red Blood Count 3.00 L Hemoglobin 9.9 L Hematocrit 31.2 L Mean Corpuscular Volume 104.0 H Mean Corpuscular Hemoglobin 33.0 Mean Corpuscular Hemoglobin Concent 31.7 L Red Cell Distribution Width 13.8 Platelet Count 183 Mean Platelet Volume 10.7 H Neutrophils % 57.6 Lymphocytes % 12.9 L Monocytes % 26.0 H Eosinophils % 2.8 Basophils % 0.3 Nucleated Red Blood Cells % 0.0 Neutrophils # (Manual) 5.7 Lymphocytes # 1.3 Monocytes # 2.6 H Eosinophils # 0.3 Basophils # 0.0 Nucleated Red Blood Cells # 0.0 Medications Medications Current Medications Nitroglycerin (Nitroglycerin (Sl Tab) 0.4 Mg) 1 tab Q5M PRN SL ANGINA Last administered on 02/01/17 05:07; Admin Dose 1 TAB; Start 02/01/17 at 04:00 Morphine Sulfate (morphine) 2 mg Q4H PRN IV PAIN Last administered on 21:27; Admin Dose 2 MG; Start 02/01/17 at 04:00 [facility] This patient becker... PRN PRN XX WOUND CARE; Start 02/01/17 at 06:00 Amiodarone HCl (Cordarone) 200 mg DAILY PO Last administered on 02/04/17 08:51 ; Admin Dose 200 MG; Start 02/01/17 at 09:00 Atorvastatin Calcium (Lipitor) 20 mg QHS PO Last administered on 02/03/17 20: 26; Admin Dose 20 MG; Start 02/01/17 at 21:00 Divalproex Sodium (Depakote Er) 250 mg TID PO Last administered on 02/04/17 08: 50; Admin Dose 250 MG; Start 02/01/17 at 09:00 Gabapentin (Neurontin) 300 mg TID PO Last administered on 02/04/17 08:50; Admin Dose 300 MG; Start 02/01/17 at 09:00 Isosorbide Dinitrate (Isordil) 20 mg Q12H PO Last administered on 02/04/17 08: 51; Admin Dose 20 MG; Start 02/01/17 at 07:30 Lamotrigine (Lamictal) 25 mg BID PO Last administered on 02/04/17 08:51; Admin Dose 25 MG; Start 02/01/17 at 09:00 Morphine Sulfate (Ms Contin (Er)) 15 mg Q12H PO Last administered on 02/04/17 08:52; Admin Dose 15 MG; Start 02/01/17 at 07:30 Pantoprazole (Protonix Tab) 40 mg DAILY PO Last administered on 02/04/17 08:51 ; Admin Dose 40 MG; Start 02/01/17 at 09:00 Tamsulosin HCl (Flomax) 0.4 mg HS PO Last administered on 02/03/17 20:26; Admin Dose 0.4 MG; Start 02/01/17 at 21:00 Trazodone HCl (Desyrel) 100 mg QHS PO Last administered on 02/03/17 20:26; Admin Dose 100 MG; Start 02/01/17 at 21:00 Zolpidem Tartrate (Ambien) 5 mg QHS PRN PO INSOMNIA; Start 02/01/17 at 07:30 Aspirin (Halfprin) 81 mg DAILY PO Last administered on 02/04/17 08:51; Admin Dose 81 MG; Start 02/01/17 at 09:00 Enoxaparin Sodium (Lovenox) 70 mg DAILY SC Last administered on 02/03/17 08:21 ; Admin Dose 70 MG; Start 02/03/17 at 09:00 Ciprofloxacin (Cipro) 500 mg BID@,18 PO ; Start 02/04/17 at 18:00 CHASE GOLDSMITH Feb 04, 2017 13:55
[2017-02-04] MEDS ORDERED: SOD CHLORIDE 0.9% 1,000 ML IV SCH (13:58)
--- NOTE | 2017-02-04 13:58 | SIPON ---
Date/Time of Note Date/Time of Note DATE: 02/04/17 TIME: 13:57 Operative Report Preoperative Diagnosis 1.Nstemi 2. Chest pain 3.cardiomyopathy Postoperative Diagnosis 1.Obstructive cad s/p ptca/stent x 1 to LAD with SARAH Operation/Procedure Performed 1.LHC 2.PTCA/stent x 1 to LAD Anesthesia Type: moderate sedation Estimated Blood Loss: minimal Transfusion Required: no Specimen: none Grafts/Implants: none Complications: no CHASE GOLDSMITH Feb 04, 2017 13:58
[2017-02-04] MEDS ORDERED: ONDANSETRON 4 MG INJ IV PRN (14:00)
[2017-02-04] MEDS ORDERED: ACETAMINOPHEN 325 MG TAB PO PRN (14:00)
[2017-02-04] MEDS ORDERED: OXYCODONE/ACETAMINOPHEN (5/325) TAB PO PRN (14:00)
[2017-02-04] MEDS ORDERED: morphine 2 MG INJ IV PRN (14:00)
[2017-02-04] MEDS ORDERED: AL HYDROX/MG HYDROX/SIMETH 30 ML CUP PO PRN (14:00)
--- NOTE | 2017-02-04 15:34 | RADRPT ---
Vent Rate: 55 bpm RR Interval: 0 msec RI Interval: 166 msec QRS Duration: 152 msec QT Interval: 478 msec QTC Interval: 457 msec P-R-T [place]: 7 - -69 - -52 degrees Sinus bradycardia Right bundle branch block Left anterior fascicular block Bifascicular block T wave abnormality, consider inferolateral ischemia Abnormal ECG Electronically Signed By: Tushar Rivera [id number]
[2017-02-04] MEDS: morphine 2 MG INJ IV PRN ×2 (15:39→20:51)
--- NOTE | 2017-02-04 16:05 | RADRPT ---
PROCEDURE: XR Chest. CLINICAL INDICATION: Shortness of breath TECHNIQUE: Single frontal chest x-ray. COMPARISON: 07:47 a.m. FINDINGS: There is diffuse bilateral interstitial prominence slightly increased since prior exam. Linear atel ectasis is seen in the right lung base. . There is no alveolar opacities or effusions.. The cardio mediastinal silhouette is unremarkable. The osseous structures are intact. IMPRESSION: Increased diffuse bilateral interstitial prominence is consistent with edema or interstitial infiltr ates.. Mild right basilar atelectasis. RPTAT: GG .Ryan Strickland MD, Date Time Electronically viewed and signed by .Ryan Strickland MD, on 02/04/2017 16:05 .L/
[2017-02-04] MEDS ORDERED: FUROSEMIDE 20 MG INJ IV ONE (16:30)
--- NOTE | 2017-02-04 16:53 | PN ---
Date/Time of Note Date/Time of Note DATE: 02/04/17 TIME: 16:44 Assessment/Plan VTE Prophylaxis VTE Prophylaxis Intervention: LMWH Lines/Catheters IV Catheter Type (from Nrs): Saline Lock Assessment/Plan Assessment/Plan 1. Non-ST elevated myocardial infarction. s/p PCI with LAD stent 02/04/2017, stable, follow up with cardiology 2. Ischemic cardiomyopathy, congestive heart failure, systolic with LVEF 40-45% , not on beta rita due to bradycardia, not on KWAKU inhibitor due to hyperkalemia 3. UTI. on cipro 4. Acute kidney injury. improved 5. Macrocytic anemia, Stable 6. Status post mechanical fall. 7. Hypertension, start on norvasc, hydralazine prn 8. DVT prophylaxis, on lovenox 9. Case discussed with staff and Dr. Bazzi. critical care time 45 minutes Subjective 24 Hr Interval Summary Free Text/Dictation patient had LAD stent. patient has high BP at 180s with shortness of breath, HR dropped down to 40s. Exam/Review of Systems Vital Signs Vitals Vital Signs Date Time Temp Pulse Resp B/P Pulse Ox O2 Delivery O2 Flow Rate FiO2 02/04/17 12:04 61 02/04/17 11:49 98.0 19 169/58 98 02/04/17 08:15 Nasal Cannula 3.0 Intake and Output 02/03/17 02/03/17 02/04/17 14:59 22:59 06:59 Intake Total 500 ml 300 ml Output Total 700 ml 1000 ml Balance -200 ml -700 ml Exam Constitutional: alert, oriented, well developed Psych: nl mood/affect, no complaints Head: atraumatic, normocephalic Eyes: EOMI, nl conjunctiva, nl lids ENMT: mucosa pink and moist, nl external ears & nose, nl lips & teeth, nl nasal mucosa & septum Neck: non-tender, supple Respiratory: clear to auscultation, normal air movement, No congested cough, No crackles/rales, No diminished breath sounds, No intercostal retraction, No labored breathing, No other, No respirations, No tactile fremitus, No wheezing Cardiovascular: nl pulses, regular rate and rhythm, No S3, No S4, No bruits, No diastolic murmur, No edema, No gallop, No irregular rhythm, No jugular venous distention (JVD), No murmurs/extra sounds, No other, No rub, No systolic murmur Gastrointestinal: nl liver, spleen, non-tender, soft, No ascites, No bowel sounds, No distended, No firm, No hepatomegaly, No mass , No other, No rebound or guarding, No splenomegaly, No surgical scars, No tender Musculoskeletal: nl extremities to inspection Extremities: normal pulses, No calf tenderness, No clubbing, No cyanosis, No edema, No other, No palpable cord, No pitting pedal edema, No tenderness Neurological: RN LAB II-XII intact, nl mental status, nl speech, nl strength Skin: nl turgor Lymph: nl lymph nodes Results Result Diagram: 02/04/17 1041 02/04/17 0722 Results 24 hrs Laboratory Tests Test 02/04/17 07:22 02/04/17 10:41 Sodium Level 139 Potassium Level 5.3 H Chloride Level 108 Carbon Dioxide Level 29 Anion Gap 7 L Blood Urea Nitrogen 27 H Creatinine 1.23 Glucose Level 79 Calcium Level 8.3 L Phosphorus Level 3.4 Magnesium Level 2.0 Creatine Kinase 36 Creatine Kinase Index 3.4 Creatinine Kinase MB (Mass) 1.23 Troponin I 0.732 *H White Blood Count 9.9 Red Blood Count 3.00 L Hemoglobin 9.9 L Hematocrit 31.2 L Mean Corpuscular Volume 104.0 H Mean Corpuscular Hemoglobin 33.0 Mean Corpuscular Hemoglobin Concent 31.7 L Red Cell Distribution Width 13.8 Platelet Count 183 Mean Platelet Volume 10.7 H Neutrophils % 57.6 Lymphocytes % 12.9 L Monocytes % 26.0 H Eosinophils % 2.8 Basophils % 0.3 Nucleated Red Blood Cells % 0.0 Neutrophils # (Manual) 5.7 Lymphocytes # 1.3 Monocytes # 2.6 H Eosinophils # 0.3 Basophils # 0.0 Nucleated Red Blood Cells # 0.0 Medications Medications Current Medications Nitroglycerin (Nitroglycerin (Sl Tab) 0.4 Mg) 1 tab Q5M PRN SL ANGINA Last administered on 02/01/17 05:07; Admin Dose 1 TAB; Start 02/01/17 at 04:00 Morphine Sulfate (morphine) 2 mg Q4H PRN IV PAIN Last administered on 02/04/17 15:39; Admin Dose 2 MG; Start 02/01/17 at 04:00 Miscellaneous Information (Pending [facility] Order For Wound Care) This patient becker... PRN PRN XX WOUND CARE; Start 02/01/17 at 06:00 Amiodarone HCl (Cordarone) 200 mg DAILY PO Last administered on 02/04/17 08:51 ; Admin Dose 200 MG; Start 02/01/17 at 09:00 Atorvastatin Calcium (Lipitor) 20 mg QHS PO Last administered on 02/03/17 20: 26; Admin Dose 20 MG; Start 02/01/17 at 21:00 Divalproex Sodium (Depakote Er) 250 mg TID PO Last administered on 02/04/17 08: 50; Admin Dose 250 MG; Start 02/01/17 at 09:00 Gabapentin (Neurontin) 300 mg TID PO Last administered on 02/04/17 15:42; Admin Dose 300 MG; Start 02/01/17 at 09:00 Lamotrigine (Lamictal) 25 mg BID PO Last administered on 02/04/17 08:51; Admin Dose 25 MG; Start 02/01/17 at 09:00 Morphine Sulfate (Ms Contin (Er)) 15 mg Q12H PO Last administered on 02/04/17 08:52; Admin Dose 15 MG; Start 02/01/17 at 07:30 Pantoprazole (Protonix Tab) 40 mg DAILY PO Last administered on 02/04/17 08:51 ; Admin Dose 40 MG; Start 02/01/17 at 09:00 Tamsulosin HCl (Flomax) 0.4 mg HS PO Last administered on 02/03/17 20:26; Admin Dose 0.4 MG; Start 02/01/17 at 21:00 Trazodone HCl (Desyrel) 100 mg QHS PO Last administered on 02/03/17 20:26; Admin Dose 100 MG; Start 02/01/17 at 21:00 Zolpidem Tartrate (Ambien) 5 mg QHS PRN PO INSOMNIA; Start 02/01/17 at 07:30 Aspirin (Halfprin) 81 mg DAILY PO Last administered on 02/04/17 08:51; Admin Dose 81 MG; Start 02/01/17 at 09:00 Enoxaparin Sodium (Lovenox) 70 mg DAILY SC Last administered on 8/31/17at 08:21 ; Admin Dose 70 MG; Start 02/03/17 at 09:00 Ciprofloxacin (Cipro) 500 mg BID@06,18 PO ; Start 02/04/17 at 18:00 Isosorbide Dinitrate (Isordil) 20 mg TID PO ; Start 02/04/17 at 21:00 Acetaminophen (Tylenol Tab) 650 mg Q4H PRN PO NON-CARDIAC PAIN LEVEL 1-3; Start 02/04/17 at 14:00 Oxycodone/ Acetaminophen (Percocet (5/ 325)) 1 tab Q4H PRN PO REPORTED NON- CARDIAC PAIN 4-7; Start 02/04/17 at 14:00 Morphine Sulfate (morphine) 1 mg Q1H PRN IV PAIN NOT RELIEVED BY OTHERS; Start 02/04/17 at 14:00 Al Hydrox/Mg Hydrox/Simethicone (Mag-Al Plus) 30 ml Q4H PRN PO GASTROINTESTINAL UPSET; Start 02/04/17 at 14:00 Ondansetron HCl 4 mg 4 mg Q4H PRN IV NAUSEA AND/OR VOMITING; Start 02/04/17 at 14:00 Sodium Chloride (NS) 1,000 ml @ 75 mls/hr [id number] IV Last administered on t 15:51; Admin Dose 75 MLS/HR; Start 02/04/17 at 13:58; Stop 02/05/17 at 03:17 Ticagrelor (Brilinta) 90 mg BID PO ; Start 02/04/17 at 21:00 Clonidine (Catapres) 0.1 mg Q6H PRN PO sbp>160; Start 02/04/17 at 17:00; Status UNV Carvedilol (Coreg) 6.25 mg BID PO ; Start 02/04/17 at 21:00; Status UNV SHANNAN WOOD MD Feb 04, 2017 16:53
[2017-02-04] MEDS: CIPROFLOXACIN 500 MG TAB PO SCH (17:02)
[2017-02-04] MEDS: AMLODIPINE 5 MG TAB PO SCH (17:03)
[2017-02-04] MEDS: ALBUTEROL/IPRATROPIUM (NEB) 3 ML AMP HHN PRN ×2 (19:20→22:09)
[2017-02-04] MEDS: TICAGRELOR 90 MG TABLET PO SCH (20:59)
[2017-02-04] MEDS: traZODone 100 MG TAB PO SCH (20:59)
[2017-02-04] MEDS: TAMSULOSIN (SR) 0.4 MG CAP PO SCH (20:59)
[2017-02-04] MEDS: ATORVASTATIN 20 MG TAB PO SCH (20:59)
[2017-02-04] MEDS: ZOLPIDEM 5 MG TAB PO PRN (22:33)
[2017-02-05] VITALS (21 sets, daily range): BP systolic 97–188; BP diastolic 43–143; PULSE 48–90; RESP 13–28
--- NOTE | 2017-02-05 00:34 | CARRPT ---
DATE OF PROCEDURE: 02/04/2017 TYPE OF PROCEDURE: 1. Left heart catheterization. 2. Coronary angiography. 3. Percutaneous transluminal coronary angioplasty with placement of drug-eluting stent x1 to mid LAD with a Xience 3.0 x 18 mm. 4. Moderate conscious sedation. ATTENDING PHYSICIAN: Dr. Gavino Bazzi. REFERRING PHYSICIAN: Dr. Gustafson from the hospital service. INDICATION: [id number]-[id number] myocardial infarction with ongoing chest pain. TYPE OF ANESTHESIA: Conscious local. BRIEF HISTORY/HOSPITAL COURSE: Mr. Jha is a 76-year-old male with history of hypertension, dyslipidemia, who initially had complaints of substernal chest pain. The patient subsequently ruled in for a hei-ME-elzmsoirj myocardial infarction, but was in acute renal failure, and therefore, underwent optimization of renal function and medical therapy. The patient is now being brought to the cardiac dental laboratory technician apprentice in order to assess for the possibility of significant coronary artery disease leading to symptoms of chest pain, [id number] myocardial infarction, and as such was admitted to the hospital. PROCEDURE: After informed consent was obtained, patient was brought to [facility] where his right radial area was prepped and draped in the usual sterile fashion. 2 percent lidocaine was infiltrated into the right radial area in order to achieve adequate local anesthesia. Using the modified Seldinger technique, the radial artery was cannulated and a 6-Turkish arterial sheath was placed. A 6-Turkish JL3.5 catheter was used to cath the left main coronary ostium. With contrast injection, multiple views of the left coronary ostium system were obtained. JL3.5 guidewire and a JR4 was used to cath the right coronary artery ostium. With contrast injection multiple views of the right coronary ostium system were obtained. A JR4 guidewire after being used to additionally cross the LV and measure LVEDP and pullback across the aortic valve to assess for significant gradient, which there was not. Subsequently at this time, given significant obstructive lesion in the patient's LAD, we moved directly into an interventional procedure. The patient had already artery received 5000 units of heparin with a radial cocktail and had pre-interventional ACT of 290. Subsequently, at this time a Q3, 6-Turkish guide was used to cath the left main coronary ostium. A 0.014 Bentson guidewire was passed to the distal lesion. The lesion was pretreated with a 2.5 x 12 mm balloon up to 14-16 atmospheres x2. The balloon was removed and the lesion was stented with a 3.0 x 18 mm drug- eluting stent deployed at 16 atmospheres x2. A followup angiogram was obtained revealing excellent result with employment of the stent. YAZ-3 flow throughout the vessel. No signs of complication including perforation, dissection. Mild step-up of the proximal end and dcrc-iz-koyxquzf stepdown at the distal end. Subsequently, at this time, the initial guide and guidewire were removed. The patient had additionally been given 200 mcg of intravenous nitroglycerin during angiographic imaging. Once removal of the guide, the patient's sheath was removed. TR band was applied. There were no noted complications. FINDINGS: 1. Coronary angiography: Left main, 4 mm with distal 30 percent to 40 percent stenosis. The circumflex proximally is a 3.5 mm vessel, which then separates very quickly into the circumflex, continuation in the AV groove, which has luminal irregularities up to approximately 60 percent and a high-branching obtuse marginal, which is a 2.5 mm vessel and has luminal irregularities up to approximately 50 percent. The LAD proximally is a 3.5 mm vessel and in its midportion has a stenosis up to approximately 90 percent. The mid LAD is free of significant focal stenosis. There is a proximal branching diagonal, 2 mm, with no focal stenosis. The right coronary artery proximally is a 3 mm vessel, and shortly after its takeoff is 100 percent occluded and can be seen to arise via npzo-wy-igtwx collaterals from the septal branch of the LAD and the distal branches of the circumflex vessel. 2. Measurement of left ventricular end-diastolic pressure of 36. No significant aortic stenosis by gradient. PTCA AND STENT PLACEMENT: Prior to PTCA and stent placement, patient had an 80 percent to 90 percent mid LAD stenosis. Post PTCA and stent placement, patient had no residual stenosis. YAZ- 3 flow throughout the vessel. No signs of complication, perforation, Dissection, and a mild step-up proximally and mild stepdown distally in the stent. TOTAL FLUOROSCOPY TIME: 11.2 minutes. TOTAL CONTRAST: 175 cc. IMPRESSION: 1. Two-vessel obstructive coronary disease involving a mid left anterior descending lesion and 100 percent occluded right coronary artery with ltso-gq-frkmf collateral flow with increased swelling in the vessel, status post successful percutaneous transluminal coronary angioplasty and stent placement x1 to mid left anterior descending with drug-eluting stent, 3.0 x 18 mm. 2. Elevated left heart filling pressures. 3. No significant aortic stenosis by gradient. RECOMMENDATIONS: In light of procedure findings at this time, would: 1. Maximize medical management. 2. Maintain patient on Brilinta at this time, 90 mg 1 tab p.o. b.i.d. times at least 1 year. 3. Aspirin 81 mg 1-2 p.o. daily indefinitely. Continue to follow the patient's volume status closely with the need for gentle Lasix diuresis, 4. following creatinine closely after this procedure. 5. The patient will be admitted to the post anesthesia care unit for postoperative anesthesia care, with then ongoing treatment evaluation for presenting symptoms. Dictated By: Gavino Bazzi MD /faye/tricia /Document#: [id number] ; Dr. Gustafson, hospital service
[2017-02-05 05:57] LABS: ABNORMAL IP MESSAGE 1; BASOPHILS % 0.3 % (0.0-2.0); EOSINOPHILS # 0.2 10^3/ul (0.0-0.5); EOSINOPHILS % 2.1 % (0.0-7.0); HEMATOCRIT 34.4 % (42.0-52.0); HEMOGLOBIN 11.2 g/dl (14.0-18.0); LYMPHOCYTES # 0.8 10^3/ul (0.8-2.9); LYMPHOCYTES % 8.3 % (15.0-51.0); MEAN CORPUSCULAR HEMOGLOBIN 33.1 pg (29.0-33.0); MEAN CORPUSCULAR HGB CONC 32.6 g/dl (32.0-37.0); MEAN CORPUSCULAR VOLUME 101.8 fl (82.0-101.0); MEAN PLATELET VOLUME 10.5 fl (7.4-10.4); MONOCYTE # 3.1 10^3/ul (0.3-0.9); MONOCYTES % 30.6 % (0.0-11.0); NEUTROPHILS % 58.5 % (39.0-77.0); PLATELET COUNT 203 10^3/UL (140-415); POSITIVE DIFF @See below; RED BLOOD COUNT 3.38 10^6/ul (4.70-6.10); RED CELL DISTRIBUTION WIDTH 13.6 % (11.5-14.5); WHITE BLOOD COUNT 10.2 10^3/ul (4.8-10.8)
[2017-02-05] MEDS: CIPROFLOXACIN 500 MG TAB PO SCH ×2 (06:15→21:58)
[2017-02-05 06:38] LABS: CALCIUM 8.6 mg/dl (8.4-10.2); CK-MB 1.89 ng/ml (0.0-2.4); CREATININE 1.39 mg/dl (0.61-1.24); POTASSIUM 4.5 mmol/L (3.5-5.1)
[2017-02-05 06:53] LABS: TROPONIN-I 0.783 ng/ml (0.00-0.12)
[2017-02-05] MEDS: morphine (ER) 15 MG TAB PO SCH ×2 (07:30→22:05)
[2017-02-05] MEDS: ENOXAPARIN 80 MG/0.8 ML SYG SC SCH ×2 (09:00→09:14)
[2017-02-05] MEDS: GABAPENTIN 300 MG CAP PO SCH ×3 (09:11→21:59)
[2017-02-05] MEDS: ASPIRIN (EC) 81 MG TAB PO SCH (09:12)
[2017-02-05] MEDS: DIVALPROEX (ER) 250 MG TAB PO SCH ×3 (09:12→21:59)
[2017-02-05] MEDS: TICAGRELOR 90 MG TABLET PO SCH ×2 (09:13→23:19)
[2017-02-05] MEDS: LAMOTRIGINE 25 MG TAB PO SCH ×2 (09:15→21:58)
[2017-02-05] MEDS: PANTOPRAZOLE (EC) 40 MG TAB PO SCH (09:15)
[2017-02-05] MEDS: AMLODIPINE 5 MG TAB PO SCH (09:15)
[2017-02-05] MEDS: ISOSORBIDE DINITRATE 20 MG TAB PO SCH ×3 (09:15→22:01)
--- NOTE | 2017-02-05 09:41 | RADRPT ---
Vent Rate: 63 bpm RR Interval: 0 msec MT Interval: 166 msec QRS Duration: 146 msec QT Interval: 454 msec QTC Interval: 464 msec P-R-T [place]: 29 - -75 - 0 degrees Normal sinus rhythm Right bundle branch block Left anterior fascicular block Bifascicular block Abnormal ECG Electronically Signed By: Gopi Pepe [phone]
[2017-02-05] MEDS: AMIODARONE 200 MG TAB PO SCH (09:45)
[2017-02-05] MEDS: ALBUTEROL/IPRATROPIUM (NEB) 3 ML AMP HHN PRN (10:10)
--- NOTE | 2017-02-05 10:22 | PN ---
Date/Time of Note Date/Time of Note DATE: 02/05/17 TIME: 10:19 Assessment/Plan VTE Prophylaxis VTE Prophylaxis Intervention: other Lines/Catheters IV [facility] Peripheral IV Urinary Cath still in place: No Assessment/Plan Chief Complaint/Hosp Course renal follow up SUBJECTIVE DATA: The patient is stable. No acute events overnight. No fevers, chills, nausea, vomiting. No shortness of breath. Remains anxious d/w ICU nurse OBJECTIVE DATA: HEENT: Head is normocephalic. NECK: Supple. HEART: Regular rate. LUNGS: Diminished breath sounds base. ABDOMEN: Soft, nontender to palpation. No guarding. EXTREMITIES: Negative for clubbing, cyanosis. No edema. DERMATOLOGIC: No rashes. MUSCULOSKELETAL: No joint effusion. NEUROLOGIC: No change in exam. MEDICATIONS: Reviewed. ASSESSMENT AND PLAN: 1. Nonoliguric acute kidney injury on top of chronic kidney diseas. Etiology secondary to hemodynamics. Renal function is stable. no evidence of contrast nephropathy 2. Hypokalemia. corrected 3. cad: s/p PCI. will need acei or arb soon 4. Anemia. Monitor H and H levels. 5. Mineral bone disorder. Monitor calcium and phosphorus. 6. Urinary tract infection. Continue current antibiotic regimen. Problems: Exam/Review of Systems Vital Signs Vitals Vital Signs Date Time Temp Pulse Resp B/P Pulse Ox O2 Delivery O2 Flow Rate FiO2 02/05/17 10:12 78 18 98 Nasal Cannula 3.0 02/05/17 06:00 134/71 02/05/17 04:00 97.3 Intake and Output 02/04/17 02/04/17 02/05/17 15:00 23:00 07:00 Intake Total 775 ml 270 ml Output Total 200 ml 2650 ml 250 ml Balance -200 ml -1875 ml 20 ml Results Result Diagram: 02/05/17 0447 02/05/17 0447 Results 24 hrs Laboratory Tests Test 02/04/17 10:41 02/05/17 04:47 White Blood Count 9.9 10.2 Red Blood Count 3.00 L 3.38 L Hemoglobin 9.9 L 11.2 L Hematocrit 31.2 L 34.4 L Mean Corpuscular Volume 104.0 H 101.8 H Mean Corpuscular Hemoglobin 33.0 33.1 H Mean Corpuscular Hemoglobin Concent 31.7 L 32.6 Red Cell Distribution Width 13.8 13.6 Platelet Count 183 203 Mean Platelet Volume 10.7 H 10.5 H Neutrophils % 57.6 58.5 Lymphocytes % 12.9 L 8.3 L Monocytes % 26.0 H 30.6 H Eosinophils % 2.8 2.1 Basophils % 0.3 0.3 Nucleated Red Blood Cells % 0.0 0.0 Neutrophils # (Manual) 5.7 6.0 Lymphocytes # 1.3 0.8 Monocytes # 2.6 H 3.1 H Eosinophils # 0.3 0.2 Basophils # 0.0 0.0 Nucleated Red Blood Cells # 0.0 0.0 Sodium Level 143 Potassium Level 4.5 Chloride Level 105 Carbon Dioxide Level 31 Anion Gap 12 Blood Urea Nitrogen 25 H Creatinine 1.39 H Glucose Level 93 Calcium Level 8.6 Creatine Kinase 42 Creatine Kinase Index 4.5 Creatinine Kinase MB (Mass) 1.89 Troponin I 0.783 *H Medications Medications Current Medications Nitroglycerin (Nitroglycerin (Sl Tab) 0.4 Mg) 1 tab Q5M PRN SL ANGINA Last administered on 02/01/17 05:07; Admin Dose 1 TAB; Start 02/01/17 at 04:00 Morphine Sulfate (morphine) 2 mg Q4H PRN IV PAIN Last administered on 02/04/17 20:51; Admin Dose 2 MG; Start 02/01/17 at 04:00 [facility] This patient becker... PRN PRN XX WOUND CARE; Start 02/01/17 at 06:00 Amiodarone HCl (Cordarone) 200 mg DAILY PO Last administered on 02/05/17 09:45 ; Admin Dose 200 MG; Start 02/01/17 at 09:00 Atorvastatin Calcium (Lipitor) 20 mg QHS PO Last administered on 02/04/17 20:59 ; Admin Dose 20 MG; Start 02/01/17 at 21:00 Divalproex Sodium (Depakote Er) 250 mg TID PO Last administered on 02/05/17 09: 12; Admin Dose 250 MG; Start 02/01/17 at 09:00 Gabapentin (Neurontin) 300 mg TID PO Last administered on 02/05/17 09:11; Admin Dose 300 MG; Start 02/01/17 at 09:00 Lamotrigine (Lamictal) 25 mg BID PO Last administered on 02/05/17 09:15; Admin Dose 25 MG; Start 02/01/17 at 09:00 Morphine Sulfate (Ms Contin (Er)) 15 mg Q12H PO Last administered on 02/05/17 07:30; Admin Dose 15 MG; Start 02/01/17 at 07:30 Pantoprazole (Protonix Tab) 40 mg DAILY PO Last administered on 02/05/17 09:15 ; Admin Dose 40 MG; Start 02/01/17 at 09:00 Tamsulosin HCl (Flomax) 0.4 mg HS PO Last administered on 02/04/17 20:59; Admin Dose 0.4 MG; Start 02/01/17 at 21:00 Trazodone HCl (Desyrel) 100 mg QHS PO Last administered on 02/04/17 20:59; Admin Dose 100 MG; Start 02/01/17 at 21:00 Zolpidem Tartrate (Ambien) 5 mg QHS PRN PO INSOMNIA Last administered on 22:33; Admin Dose 5 MG; Start 02/01/17 at 07:30 Aspirin (Halfprin) 81 mg DAILY PO Last administered on 02/05/17 09:12; Admin Dose 81 MG; Start 02/01/17 at 09:00 Enoxaparin Sodium (Lovenox) 70 mg DAILY SC Last administered on 02/05/17 09:14 ; Admin Dose 70 MG; Start 02/03/17 at 09:00 Ciprofloxacin (Cipro) 500 mg BID@18 PO Last administered on 02/05/17 06:15; Admin Dose 500 MG; Start 02/04/17 at 18:00 Isosorbide Dinitrate (Isordil) 20 mg TID PO Last administered on 02/05/17 09:15 ; Admin Dose 20 MG; Start 02/04/17 at 21:00 Acetaminophen (Tylenol Tab) 650 mg Q4H PRN PO NON-CARDIAC PAIN LEVEL 1-3; Start 02/04/17 at 14:00 Oxycodone/ Acetaminophen (Percocet (5/ 325)) 1 tab Q4H PRN PO REPORTED NON- CARDIAC PAIN 4-7; Start 02/04/17 at 14:00 Morphine Sulfate (morphine) 1 mg Q1H PRN IV PAIN NOT RELIEVED BY OTHERS; Start 02/04/17 at 14:00 Al Hydrox/Mg Hydrox/Simethicone (Mag-Al Plus) 30 ml Q4H PRN PO GASTROINTESTINAL UPSET; Start 02/04/17 at 14:00 Ondansetron HCl (Zofran Inj) 4 mg Q4H PRN IV NAUSEA AND/OR VOMITING; Start 02/04 at 14:00 Ticagrelor (Brilinta) 90 mg BID PO Last administered on 02/05/17 09:13; Admin Dose 90 MG; Start 02/04/17 at 21:00 Amlodipine Besylate (Norvasc) 5 mg DAILY PO Last administered on 02/05/17 09:15 ; Admin Dose 5 MG; Start 02/04/17 at 17:00 Hydralazine HCl (Apresoline) 10 mg Q6H PRN PO sbp>160 Last administered on 18:08; Admin Dose 10 MG; Start 02/04/17 at 17:00 JHONATHAN VERGARA DO Feb 05, 2017 10:22
[2017-02-05] MEDS ORDERED: LORAZEPAM 2 MG INJ IV ONE (11:00)
--- NOTE | 2017-02-05 13:45 | PN ---
Date/Time of Note Date/Time of Note DATE: 02/05/17 TIME: 13:42 Assessment/Plan VTE Prophylaxis VTE Prophylaxis Intervention: LMWH Lines/Catheters [facility] Saline Lock Urinary Cath still in place: No Assessment/Plan Chief Complaint/Hosp Course Assessment and plan 1. Non-ST elevated myocardial infarction. 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 continue statin and beta rita.Patient status post left heart cath with PTCA/stent to the LAD. 2. Status post mechanical fall. CT scan of the head showed early ischemic injury. further imaging per neurologist. continue with recommendations. Continue with physical therapy 3. UTI. Improving. Monitor. 4. Acute kidney injury. stable. continue with portrait artist recs 5. Anemia of chronic disease. Stable at present. monitor H&H Disposition and plan: Transfer to telemetry. Monitor for improvement of renal function. Discussed plan of care with Dr. Landon Critical CARE time: 30 minute Problems: Subjective 24 Hr Interval Summary Free Text/Dictation Patient is report having some anxiety with denies any chest pain. 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, nl mental status, nl speech Results Result Diagram: 02/05/1744602/05/17446 Results 24 hrs Laboratory Tests Test 02/05/17 04:47 White Blood Count 10.2 Red Blood Count 3.38 L Hemoglobin 11.2 L Hematocrit 34.4 L Mean Corpuscular Volume 101.8 H Mean Corpuscular Hemoglobin 33.1 H Mean Corpuscular Hemoglobin Concent 32.6 Red Cell Distribution Width 13.6 Platelet Count 203 Mean Platelet Volume 10.5 H Neutrophils % 58.5 Lymphocytes % 8.3 L Monocytes % 30.6 H Eosinophils % 2.1 Basophils % 0.3 Nucleated Red Blood Cells % 0.0 Neutrophils # (Manual) 6.0 Lymphocytes # 0.8 Monocytes # 3.1 H Eosinophils # 0.2 Basophils # 0.0 Nucleated Red Blood Cells # 0.0 Sodium Level 143 Potassium Level 4.5 Chloride Level 105 Carbon Dioxide Level 31 Anion Gap 12 Blood Urea Nitrogen 25 H Creatinine 1.39 H Glucose Level 93 Calcium Level 8.6 Creatine Kinase 42 Creatine Kinase Index 4.5 Creatinine Kinase MB (Mass) 1.89 Troponin I 0.783 *H Medications Medications Current Medications Nitroglycerin (Nitroglycerin (Sl Tab) 0.4 Mg) 1 tab Q5M PRN SL ANGINA Last administered on 02/01/17 05:07; Admin Dose 1 TAB; Start 02/01/17 at 04:00 Morphine Sulfate (morphine) 2 mg Q4H PRN IV PAIN Last administered on 02/04/17 20:51; Admin Dose 2 MG; Start 02/01/17 at 04:00 [facility] This patient becker... PRN PRN XX WOUND CARE; Start 02/01/17 at 06:00 Amiodarone HCl (Cordarone) 200 mg DAILY PO Last administered on 02/05/17 09:45 ; Admin Dose 200 MG; Start 02/01/17 at 09:00 Atorvastatin Calcium (Lipitor) 20 mg QHS PO Last administered on 02/04/17 20:59 ; Admin Dose 20 MG; Start 02/01/17 at 21:00 Divalproex Sodium (Depakote Er) 250 mg TID PO Last administered on 02/05/17 13: 19; Admin Dose 250 MG; Start 02/01/17 at 09:00 Gabapentin (Neurontin) 300 mg TID PO Last administered on 02/05/17 13:19; Admin Dose 300 MG; Start 02/01/17 at 09:00 Lamotrigine (Lamictal) 25 mg BID PO Last administered on 02/05/17 09:15; Admin Dose 25 MG; Start 02/01/17 at 09:00 Morphine Sulfate (Ms Contin (Er)) 15 mg Q12H PO Last administered on 02/05/17 07:30; Admin Dose 15 MG; Start 02/01/17 at 07:30 Pantoprazole (Protonix Tab) 40 mg DAILY PO Last administered on 02/05/17 09:15 ; Admin Dose 40 MG; Start 02/01/17 at 09:00 Tamsulosin HCl (Flomax) 0.4 mg HS PO Last administered on 02/04/17 20:59; Admin Dose 0.4 MG; Start 02/01/17 at 21:00 Trazodone HCl (Desyrel) 100 mg QHS PO Last administered on 02/04/17 20:59; Admin Dose 100 MG; Start 02/01/17 at 21:00 Zolpidem Tartrate (Ambien) 5 mg QHS PRN PO INSOMNIA Last administered on 22:33; Admin Dose 5 MG; Start 02/01/17 at 07:30 Aspirin (Halfprin) 81 mg DAILY PO Last administered on 02/05/17 09:12; Admin Dose 81 MG; Start 02/01/17 at 09:00 Enoxaparin Sodium (Lovenox) 70 mg DAILY SC Last administered on 02/05/17 09:00 ; Admin Dose 70 MG; Start 02/03/17 at 09:00 Ciprofloxacin (Cipro) 500 mg BID@,18 PO Last administered on 02/05/17 06:15; Admin Dose 500 MG; Start 02/04/17 at 18:00 Isosorbide Dinitrate (Isordil) 20 mg TID PO Last administered on 02/05/17 09:15 ; Admin Dose 20 MG; Start 02/04/17 at 21:00 Acetaminophen (Tylenol Tab) 650 mg Q4H PRN PO NON-CARDIAC PAIN LEVEL 1-3; Start 02/04/17 at 14:00 Oxycodone/ Acetaminophen (Percocet (5/ 325)) 1 tab Q4H PRN PO REPORTED NON- CARDIAC PAIN 4-7 Last administered on 02/05/17 10:25; Admin Dose 1 TAB; Start at 14:00 Morphine Sulfate (morphine) 1 mg Q1H PRN IV PAIN NOT RELIEVED BY OTHERS; Start 02/04/17 at 14:00 Al Hydrox/Mg Hydrox/Simethicone (Mag-Al Plus) 30 ml Q4H PRN PO GASTROINTESTINAL UPSET; Start 02/04/17 at 14:00 Ondansetron HCl (Zofran Inj) 4 mg Q4H PRN IV NAUSEA AND/OR VOMITING; Start 02/04 at 14:00 Ticagrelor (Brilinta) 90 mg BID PO Last administered on 02/05/17 09:13; Admin Dose 90 MG; Start 02/04/17 at 21:00 Amlodipine Besylate (Norvasc) 5 mg DAILY PO Last administered on 02/05/17 09:15 ; Admin Dose 5 MG; Start 02/04/17 at 17:00 Hydralazine HCl (Apresoline) 10 mg Q6H PRN PO sbp>160 Last administered on 18:08; Admin Dose 10 MG; Start 02/04/17 at 17:00 Lorazepam (Ativan) 0.5 mg Q6H PRN IV anxiety; Start 02/05/17 at 11:00 RADHA EISENBERG Feb 05, 2017 13:45
[2017-02-05] MEDS: LORAZEPAM 2 MG INJ IV PRN (15:03)
--- NOTE | 2017-02-05 18:05 | PN ---
Date/Time of Note Date/Time of Note DATE: 02/05/17 TIME: 17:53 Assessment/Plan VTE Prophylaxis VTE Prophylaxis Intervention: heparin Lines/Catheters IV Catheter Type (from [facility]): Saline Lock Urinary Cath still in place: No Assessment/Plan Chief Complaint/Hosp Course 1.Nstemi 2. Chest pain 3.cardiomyopathy Postoperative Diagnosis 1.Obstructive cad s/p ptca/stent x 1 to LAD with SARAH Operation/Procedure Performed on 02/04/17 1.LHC 2.PTCA/stent x 1 to LAD PLAN: Continue current care, will f/u tomorrow. Problems: Subjective 24 Hr Interval Summary Subjective hx not possible: other Exam/Review of Systems Vital Signs Vitals Vital Signs Date Time Temp Pulse Resp B/P Pulse Ox O2 Delivery O2 Flow Rate FiO2 02/05/17 16:45 3.0 02/05/17 16:00 55 02/05/17 10:12 18 98 Nasal Cannula 02/05/17 10:00 127/75 02/05/17 08:00 98.3 Intake and Output 02/04/17 02/04/17 02/05/17 15:00 23:00 07:00 Intake Total 775 ml 270 ml Output Total 200 ml 2650 ml 250 ml Balance -200 ml -1875 ml 20 ml Exam Constitutional: frail, well developed Psych: confusion Head: atraumatic, normocephalic Eyes: EOMI Neck: non-tender Respiratory: normal air movement Cardiovascular: nl pulses, regular rate and rhythm Gastrointestinal: nl liver, spleen, non-tender, soft Extremities: normal pulses Skin: nl turgor, No rash or lesions Results Result Diagram: 02/05/17 0447 02/05/17 0447 Results 24 hrs Laboratory Tests Test 02/05/17 04:47 White Blood Count 10.2 Red Blood Count 3.38 L Hemoglobin 11.2 L Hematocrit 34.4 L Mean Corpuscular Volume 101.8 H Mean Corpuscular Hemoglobin 33.1 H Mean Corpuscular Hemoglobin Concent 32.6 Red Cell Distribution Width 13.6 Platelet Count 203 Mean Platelet Volume 10.5 H Neutrophils % 58.5 Lymphocytes % 8.3 L Monocytes % 30.6 H Eosinophils % 2.1 Basophils % 0.3 Nucleated Red Blood Cells % 0.0 Neutrophils # (Manual) 6.0 Lymphocytes # 0.8 Monocytes # 3.1 H Eosinophils # 0.2 Basophils # 0.0 Nucleated Red Blood Cells # 0.0 Sodium Level 143 Potassium Level 4.5 Chloride Level 105 Carbon Dioxide Level 31 Anion Gap 12 Blood Urea Nitrogen 25 H Creatinine 1.39 H Glucose Level 93 Calcium Level 8.6 Creatine Kinase 42 Creatine Kinase Index 4.5 Creatinine Kinase MB (Mass) 1.89 Troponin I 0.783 *H Medications Medications Current Medications Nitroglycerin (Nitroglycerin (Sl Tab) 0.4 Mg) 1 tab Q5M PRN SL ANGINA Last administered on 02/01/17 05:07; Admin Dose 1 TAB; Start 02/01/17 at 04:00 Morphine Sulfate (morphine) 2 mg Q4H PRN IV PAIN Last administered on 02/04/17 20:51; Admin Dose 2 MG; Start 02/01/17 at 04:00 Miscellaneous Information (Pending [facility] Order For Wound Care) This patient becker... PRN PRN XX WOUND CARE; Start 02/01/17 at 06:00 Amiodarone HCl (Cordarone) 200 mg DAILY PO Last administered on 02/05/17 09:45 ; Admin Dose 200 MG; Start 02/01/17 at 09:00 Atorvastatin Calcium (Lipitor) 20 mg QHS PO Last administered on 02/04/17 20:59 ; Admin Dose 20 MG; Start 02/01/17 at 21:00 Divalproex Sodium (Depakote Er) 250 mg TID PO Last administered on 02/05/17 13: 19; Admin Dose 250 MG; Start 02/01/17 at 09:00 Gabapentin (Neurontin) 300 mg TID PO Last administered on 02/05/17 13:19; Admin Dose 300 MG; Start 02/01/17 at 09:00 Lamotrigine (Lamictal) 25 mg BID PO Last administered on 02/05/17 09:15; Admin Dose 25 MG; Start 02/01/17 at 09:00 Morphine Sulfate (Ms Contin (Er)) 15 mg Q12H PO Last administered on 02/05/17 07:30; Admin Dose 15 MG; Start 02/01/17 at 07:30 Pantoprazole (Protonix Tab) 40 mg DAILY PO Last administered on 02/05/17 09:15 ; Admin Dose 40 MG; Start 02/01/17 at 09:00 Tamsulosin HCl (Flomax) 0.4 mg HS PO Last administered on 02/04/17 20:59; Admin Dose 0.4 MG; Start 02/01/17 at 21:00 Trazodone HCl (Desyrel) 100 mg QHS PO Last administered on 02/04/17 20:59; Admin Dose 100 MG; Start 02/01/17 at 21:00 Zolpidem Tartrate (Ambien) 5 mg QHS PRN PO INSOMNIA Last administered on 22:33; Admin Dose 5 MG; Start 02/01/17 at 07:30 Aspirin (Halfprin) 81 mg DAILY PO Last administered on 02/05/17 09:12; Admin Dose 81 MG; Start 02/01/17 at 09:00 Enoxaparin Sodium (Lovenox) 70 mg DAILY SC Last administered on 02/05/17 09:00 ; Admin Dose 70 MG; Start 02/03/17 at 09:00 Ciprofloxacin (Cipro) 500 mg BID@18 PO Last administered on 02/05/17 06:15; Admin Dose 500 MG; Start 02/04/17 at 18:00 Isosorbide Dinitrate (Isordil) 20 mg TID PO Last administered on 02/05/17 09:15 ; Admin Dose 20 MG; Start 02/04/17 at 21:00 Acetaminophen (Tylenol Tab) 650 mg Q4H PRN PO NON-CARDIAC PAIN LEVEL 1-3; Start 02/04/17 at 14:00 Oxycodone/ Acetaminophen (Percocet (5/ 325)) 1 tab Q4H PRN PO REPORTED NON- CARDIAC PAIN 4-7 Last administered on 02/05/17 10:25; Admin Dose 1 TAB; Start at 14:00 Morphine Sulfate (morphine) 1 mg Q1H PRN IV PAIN NOT RELIEVED BY OTHERS; Start 02/04/17 at 14:00 Al Hydrox/Mg Hydrox/Simethicone (Mag-Al Plus) 30 ml Q4H PRN PO GASTROINTESTINAL UPSET; Start 02/04/17 at 14:00 Ondansetron HCl (Zofran Inj) 4 mg Q4H PRN IV NAUSEA AND/OR VOMITING; Start 02/04 at 14:00 Ticagrelor (Brilinta) 90 mg BID PO Last administered on 02/05/17 09:13; Admin Dose 90 MG; Start 02/04/17 at 21:00 Amlodipine Besylate (Norvasc) 5 mg DAILY PO Last administered on 02/05/17 09:15 ; Admin Dose 5 MG; Start 02/04/17 at 17:00 Hydralazine HCl (Apresoline) 10 mg Q6H PRN PO sbp>160 Last administered on 18:08; Admin Dose 10 MG; Start 02/04/17 at 17:00 Lorazepam (Ativan) 0.5 mg Q6H PRN IV anxiety Last administered on 02/05/17 15: 03; Admin Dose 0.5 MG; Start 02/05/17 at 11:00 DONNIE SOLORIO MD Feb 05, 2017 18:03
[2017-02-05] MEDS ORDERED: SOD CHLORIDE 0.9% 1,000 ML IV ONE (21:00)
[2017-02-05] MEDS ORDERED: ALBUMIN HUMAN 25% 100 ML IV ONE (21:30)
[2017-02-05] MEDS: ATORVASTATIN 20 MG TAB PO SCH (21:58)
[2017-02-05] MEDS: TAMSULOSIN (SR) 0.4 MG CAP PO SCH (21:58)
[2017-02-05] MEDS: traZODone 100 MG TAB PO SCH (23:20)
[2017-02-06] VITALS (9 sets, daily range): BP systolic 107–140; BP diastolic 56–72; PULSE 50–60; RESP 18–20
[2017-02-06] MEDS: CIPROFLOXACIN 500 MG TAB PO SCH ×2 (06:31→17:46)
[2017-02-06] MEDS: LAMOTRIGINE 25 MG TAB PO SCH ×2 (09:12→20:29)
[2017-02-06] MEDS: morphine (ER) 15 MG TAB PO SCH ×2 (09:13→20:29)
[2017-02-06] MEDS: TICAGRELOR 90 MG TABLET PO SCH ×2 (09:14→20:31)
[2017-02-06] MEDS: ENOXAPARIN 80 MG/0.8 ML SYG SC SCH (09:15)
[2017-02-06] MEDS: ASPIRIN (EC) 81 MG TAB PO SCH (09:15)
[2017-02-06] MEDS: DIVALPROEX (ER) 250 MG TAB PO SCH ×3 (09:15→20:29)
[2017-02-06] MEDS: ISOSORBIDE DINITRATE 20 MG TAB PO SCH ×3 (09:15→21:36)
[2017-02-06] MEDS: GABAPENTIN 300 MG CAP PO SCH ×3 (09:16→20:29)
[2017-02-06] MEDS: AMIODARONE 200 MG TAB PO SCH (09:16)
[2017-02-06] MEDS: AMLODIPINE 5 MG TAB PO SCH (09:16)
[2017-02-06] MEDS: PANTOPRAZOLE (EC) 40 MG TAB PO SCH (09:16)
--- NOTE | 2017-02-06 10:17 | PN ---
Date/Time of Note Date/Time of Note DATE: 02/06/17 TIME: 10:17 Assessment/Plan VTE Prophylaxis VTE Prophylaxis Intervention: other Lines/Catheters IV C[facility] Type [facility] Saline Lock Assessment/Plan Chief Complaint/Hosp Course renal follow up SUBJECTIVE DATA: The patient is stable. No acute events overnight. No fevers, chills, nausea, vomiting. No shortness of breath. less anxious OBJECTIVE DATA: HEENT: Head is normocephalic. NECK: Supple. HEART: Regular rate. LUNGS: Diminished breath sounds base. ABDOMEN: Soft, nontender to palpation. No guarding. EXTREMITIES: Negative for clubbing, cyanosis. No edema. DERMATOLOGIC: No rashes. MUSCULOSKELETAL: No joint effusion. NEUROLOGIC: No change in exam. MEDICATIONS: Reviewed. ASSESSMENT AND PLAN: 1. Nonoliguric acute kidney injury on top of chronic kidney diseas. Etiology secondary to hemodynamics. Renal function is stable. no evidence of contrast nephropathy 2. Hypokalemia. corrected 3. cad: s/p PCI. will need acei or arb soon 4. Anemia. Monitor H and H levels. 5. Mineral bone disorder. Monitor calcium and phosphorus. 6. Urinary tract infection. Continue current antibiotic regimen. Problems: Exam/Review of Systems Vital Signs Vitals Vital Signs Date Time Temp Pulse Resp B/P Pulse Ox O2 Delivery O2 Flow Rate FiO2 02/06/17 08:02 50 02/06/17 08:00 98.0 20 122/59 98 02/05/17 20:00 Nasal Cannula 3.0 Intake and Output 02/05/17 02/05/17 02/06/17 15:00 23:00 07:00 Intake Total 360 ml 120 ml 250 ml Output Total 500 ml 300 ml 850 ml Balance -140 ml -180 ml -600 ml Results Result Diagram: 02/05/17 0447 02/05/17 0447 Results 24 hrs Laboratory Tests Test 02/06/17 09:17 White Blood Count Pending Red Blood Count Pending Hemoglobin Pending Hematocrit Pending Mean Corpuscular Volume Pending Mean Corpuscular Hemoglobin Pending Mean Corpuscular Hemoglobin Concent Pending Red Cell Distribution Width Pending Platelet Count Pending Mean Platelet Volume Pending Medications Medications Current Medications Nitroglycerin (Nitroglycerin (Sl Tab) 0.4 Mg) 1 tab Q5M PRN SL ANGINA Last administered on 02/01/17 05:07; Admin Dose 1 TAB; Start 02/01/17 at 04:00 Morphine Sulfate (morphine) 2 mg Q4H PRN IV PAIN Last administered on 02/04/17 20:51; Admin Dose 2 MG; Start 02/01/17 at 04:00 Miscellaneous Information (Pending Santyl Order For Wound Care) This patient becker... PRN PRN XX WOUND CARE; Start 02/01/17 at 06:00 Amiodarone HCl (Cordarone) 200 mg DAILY PO Last administered on 02/06/17 09:16 ; Admin Dose 200 MG; Start 02/01/17 at 09:00 Atorvastatin Calcium (Lipitor) 20 mg QHS PO Last administered on 02/05/17 21:58 ; Admin Dose 20 MG; Start 02/01/17 at 21:00 Divalproex Sodium (Depakote Er) 250 mg TID PO Last administered on 02/06/17 09: 15; Admin Dose 250 MG; Start 02/01/17 at 09:00 Gabapentin (Neurontin) 300 mg TID PO Last administered on 02/06/17 09:16; Admin Dose 300 MG; Start 02/01/17 at 09:00 Lamotrigine (Lamictal) 25 mg BID PO Last administered on 02/06/17 09:12; Admin Dose 25 MG; Start 02/01/17 at 09:00 Morphine Sulfate (Ms Contin (Er)) 15 mg Q12H PO Last administered on 02/06/17 09:13; Admin Dose 15 MG; Start 02/01/17 at 07:30 Pantoprazole (Protonix Tab) 40 mg DAILY PO Last administered on 02/06/17 09:16 ; Admin Dose 40 MG; Start 02/01/17 at 09:00 Tamsulosin HCl (Flomax) 0.4 mg HS PO Last administered on 02/05/17 21:58; Admin Dose 0.4 MG; Start 02/01/17 at 21:00 Trazodone HCl (Desyrel) 100 mg QHS PO Last administered on 02/05/17 23:20; Admin Dose 100 MG; Start 02/01/17 at 21:00 Zolpidem Tartrate (Ambien) 5 mg QHS PRN PO INSOMNIA Last administered on 22:33; Admin Dose 5 MG; Start 02/01/17 at 07:30 Aspirin (Halfprin) 81 mg DAILY PO Last administered on 02/06/17 09:15; Admin Dose 81 MG; Start 02/01/17 at 09:00 Enoxaparin Sodium (Lovenox) 70 mg DAILY SC Last administered on 02/06/17 09:15 ; Admin Dose 70 MG; Start 02/03/17 at 09:00 Ciprofloxacin (Cipro) 500 mg BID@,18 PO Last administered on 02/06/17 06:31; Admin Dose 500 MG; Start 02/04/17 at 18:00 Isosorbide Dinitrate (Isordil) 20 mg TID PO Last administered on 02/06/17 09:15 ; Admin Dose 20 MG; Start 02/04/17 at 21:00 Acetaminophen (Tylenol Tab) 650 mg Q4H PRN PO NON-CARDIAC PAIN LEVEL 1-3; Start 02/04/17 at 14:00 Oxycodone/ Acetaminophen (Percocet (5/ 325)) 1 tab Q4H PRN PO REPORTED NON- CARDIAC PAIN 4-7 Last administered on 02/05/17 10:25; Admin Dose 1 TAB; Start at 14:00 Morphine Sulfate (morphine) 1 mg Q1H PRN IV PAIN NOT RELIEVED BY OTHERS; Start 02/04/17 at 14:00 Al Hydrox/Mg Hydrox/Simethicone (Mag-Al Plus) 30 ml Q4H PRN PO GASTROINTESTINAL UPSET; Start 02/04/17 at 14:00 Ondansetron HCl (Zofran Inj) 4 mg Q4H PRN IV NAUSEA AND/OR VOMITING; Start 02/04 at 14:00 Ticagrelor (Brilinta) 90 mg BID PO Last administered on 02/06/17 09:14; Admin Dose 90 MG; Start 02/04/17 at 21:00 Amlodipine Besylate (Norvasc) 5 mg DAILY PO Last administered on 02/06/17 09:16 ; Admin Dose 5 MG; Start 02/04/17 at 17:00 Hydralazine HCl (Apresoline) 10 mg Q6H PRN PO sbp>160 Last administered on 18:08; Admin Dose 10 MG; Start 02/04/17 at 17:00 Lorazepam (Ativan) 0.5 mg Q6H PRN IV anxiety Last administered on 02/05/17t 15: 03; Admin Dose 0.5 MG; Start 02/05/17 at 11:00 JHONATHAN VERGARA DO Feb 06, 2017 10:17
[2017-02-06 10:23] LABS: ABNORMAL IP MESSAGE 1; BASOPHILS % 0.3 % (0.0-2.0); EOSINOPHILS # 0.4 10^3/ul (0.0-0.5); HEMATOCRIT 36.1 % (42.0-52.0); HEMOGLOBIN 11.3 g/dl (14.0-18.0); LYMPHOCYTES # 1.2 10^3/ul (0.8-2.9); LYMPHOCYTES % 13.5 % (15.0-51.0); MEAN CORPUSCULAR HEMOGLOBIN 31.7 pg (29.0-33.0); MEAN CORPUSCULAR HGB CONC 31.3 g/dl (32.0-37.0); MEAN CORPUSCULAR VOLUME 101.4 fl (82.0-101.0); MEAN PLATELET VOLUME 10.5 fl (7.4-10.4); MONOCYTE # 1.8 10^3/ul (0.3-0.9); MONOCYTES % 20.8 % (0.0-11.0); NEUTROPHILS % 60.2 % (39.0-77.0); PLATELET COUNT 213 10^3/UL (140-415); POSITIVE DIFF @See below; RED BLOOD COUNT 3.56 10^6/ul (4.70-6.10); RED CELL DISTRIBUTION WIDTH 13.8 % (11.5-14.5); WHITE BLOOD COUNT 8.7 10^3/ul (4.8-10.8)
[2017-02-06 10:35] LABS: CREATININE 1.19 mg/dl (0.61-1.24); POTASSIUM 4.6 mmol/L (3.5-5.1)
--- NOTE | 2017-02-06 13:24 | PN ---
Date/Time of Note Date/Time of Note DATE: 02/06/17 TIME: 13:21 Assessment/Plan VTE Prophylaxis VTE Prophylaxis Intervention: SCD's Lines/Catheters IV C[facility]ter Type (from [facility] Saline Lock Assessment/Plan Chief Complaint/Hosp Course Assessment and plan 1. Non-ST elevated myocardial infarction. lovenox per refrigerator glazier. continue statin and beta rita.Patient status post left heart cath with PTCA/stent to the LAD. 2. Status post mechanical fall. CT scan of the head showed early ischemic injury. further imaging per neurologist. continue with recommendations. Continue with physical therapy 3. UTI. Improving. Monitor. 4. Acute kidney injury. stable. continue with dry heat cabinet attendant recs continue to monitor 5. Anemia of chronic disease. Stable at present. monitor H&H Disposition and plan: Plan for longterm facility placement upon discharge. Will follow up with leather case finisher. DC when cleared by consultants Discussed plan of care with Dr. Landon Problems: Subjective 24 Hr Interval Summary Free Text/Dictation Comfortable at present. No specific complaints. Exam/Review of Systems Vital Signs Vitals Vital Signs Date Time Temp Pulse Resp B/P Pulse Ox O2 Delivery O2 Flow Rate FiO2 02/06/17 12:30 98.0 65 20 107/56 98 02/06/17 08:00 Nasal Cannula 3.0 Intake and Output 02/05/17 02/05/17 02/06/17 15:00 23:00 07:00 Intake Total 360 ml 120 ml 250 ml Output Total 500 ml 300 ml 850 ml Balance -140 ml -180 ml -600 ml Exam Constitutional: alert, oriented Psych: anxiety Head: normocephalic Neck: supple, No jvd Respiratory: clear to auscultation, normal air movement Cardiovascular: regular rate and rhythm Gastrointestinal: non-tender, soft Neurological: SCREENPLAY WRITER II-XII intact, nl mental status, nl speech Results Result Diagram: 02/06/17 0917 02/06/17 0949 Results 24 hrs Laboratory Tests Test 02/06/17 09:17 02/06/17 09:49 White Blood Count 8.7 Red Blood Count 3.56 L Hemoglobin 11.3 L Hematocrit 36.1 L Mean Corpuscular Volume 101.4 H Mean Corpuscular Hemoglobin 31.7 Mean Corpuscular Hemoglobin Concent 31.3 L Red Cell Distribution Width 13.8 Platelet Count 213 Mean Platelet Volume 10.5 H Neutrophils % 60.2 Lymphocytes % 13.5 L Monocytes % 20.8 H Eosinophils % 5.0 Basophils % 0.3 Nucleated Red Blood Cells % 0.0 Neutrophils # (Manual) 5.2 Lymphocytes # 1.2 Monocytes # 1.8 H Eosinophils # 0.4 Basophils # 0.0 Nucleated Red Blood Cells # 0.0 Sodium Level 142 Potassium Level 4.6 Chloride Level 108 Carbon Dioxide Level 27 Anion Gap 12 Blood Urea Nitrogen 18 Creatinine 1.19 Glucose Level 84 Calcium Level 9.0 Medications Medications Current Medications Nitroglycerin (Nitroglycerin (Sl Tab) 0.4 Mg) 1 tab Q5M PRN SL ANGINA Last administered on 02/01/17 05:07; Admin Dose 1 TAB; Start 02/01/17 at 04:00 Morphine Sulfate (morphine) 2 mg Q4H PRN IV PAIN Last administered on 02/04/17 20:51; Admin Dose 2 MG; Start 02/01/17 at 04:00 Miscellaneous Information (Pending [facility] Order For Wound Care) This patient becker... PRN PRN XX WOUND CARE; Start 02/01/17 at 06:00 Amiodarone HCl (Cordarone) 200 mg DAILY PO Last administered on 02/06/17 09:16 ; Admin Dose 200 MG; Start 02/01/17 at 09:00 Atorvastatin Calcium (Lipitor) 20 mg QHS PO Last administered on 02/05/17 21:58 ; Admin Dose 20 MG; Start 02/01/17 at 21:00 Divalproex Sodium (Depakote Er) 250 mg TID PO Last administered on 02/06/17 09: 15; Admin Dose 250 MG; Start 02/01/17 at 09:00 Gabapentin (Neurontin) 300 mg TID PO Last administered on 02/06/17 09:16; Admin Dose 300 MG; Start 02/01/17 at 09:00 Lamotrigine (Lamictal) 25 mg BID PO Last administered on 02/06/17 09:12; Admin Dose 25 MG; Start 02/01/17 at 09:00 Morphine Sulfate (Ms Contin (Er)) 15 mg Q12H PO Last administered on 02/06/17 09:13; Admin Dose 15 MG; Start 02/01/17 at 07:30 Pantoprazole (Protonix Tab) 40 mg DAILY PO Last administered on 02/06/17 09:16 ; Admin Dose 40 MG; Start 02/01/17 at 09:00 Tamsulosin HCl (Flomax) 0.4 mg HS PO Last administered on 02/05/17 21:58; Admin Dose 0.4 MG; Start 02/01/17 at 21:00 Trazodone HCl (Desyrel) 100 mg QHS PO Last administered on 02/05/17 23:20; Admin Dose 100 MG; Start 02/01/17 at 21:00 Zolpidem Tartrate (Ambien) 5 mg QHS PRN PO INSOMNIA Last administered on 22:33; Admin Dose 5 MG; Start 02/01/17 at 07:30 Aspirin (Halfprin) 81 mg DAILY PO Last administered on 02/06/17 09:15; Admin Dose 81 MG; Start 02/01/17 at 09:00 Enoxaparin Sodium (Lovenox) 70 mg DAILY SC Last administered on 02/06/17 09:15 ; Admin Dose 70 MG; Start 02/03/17 at 09:00 Ciprofloxacin (Cipro) 500 mg BID@06,18 PO Last administered on 02/06/17 06:31; Admin Dose 500 MG; Start 02/04/17 at 18:00 Isosorbide Dinitrate (Isordil) 20 mg TID PO Last administered on 02/06/17 09:15 ; Admin Dose 20 MG; Start 02/04/17 at 21:00 Acetaminophen (Tylenol Tab) 650 mg Q4H PRN PO NON-CARDIAC PAIN LEVEL 1-3; Start 02/04/17 at 14:00 Oxycodone/ Acetaminophen (Percocet (5/ 325)) 1 tab Q4H PRN PO REPORTED NON- CARDIAC PAIN 4-7 Last administered on 02/05/17 10:25; Admin Dose 1 TAB; Start at 14:00 Morphine Sulfate (morphine) 1 mg Q1H PRN IV PAIN NOT RELIEVED BY OTHERS; Start 02/04/17 at 14:00 Al Hydrox/Mg Hydrox/Simethicone (Mag-Al Plus) 30 ml Q4H PRN PO GASTROINTESTINAL UPSET; Start 02/04/17 at 14:00 Ondansetron HCl (Zofran Inj) 4 mg Q4H PRN IV NAUSEA AND/OR VOMITING; Start 02/04 at 14:00 Ticagrelor (Brilinta) 90 mg BID PO Last administered on 02/06/17 09:14; Admin Dose 90 MG; Start 02/04/17 at 21:00 Amlodipine Besylate (Norvasc) 5 mg DAILY PO Last administered on 02/06/17 09:16 ; Admin Dose 5 MG; Start 02/04/17 at 17:00 Hydralazine HCl (Apresoline) 10 mg Q6H PRN PO sbp>160 Last administered on 18:08; Admin Dose 10 MG; Start 02/04/17 at 17:00 Lorazepam (Ativan) 0.5 mg Q6H PRN IV anxiety Last administered on 02/05/17 15: 03; Admin Dose 0.5 MG; Start 02/05/17 at 11:00 RADHA EISENBERG Feb 06, 2017 13:24
[2017-02-06] MEDS: TAMSULOSIN (SR) 0.4 MG CAP PO SCH (20:29)
[2017-02-06] MEDS: ATORVASTATIN 20 MG TAB PO SCH (20:29)
[2017-02-06] MEDS: traZODone 100 MG TAB PO SCH (21:42)
[2017-02-06] MEDS: ZOLPIDEM 5 MG TAB PO PRN (21:42)
[2017-02-07] VITALS (8 sets, daily range): BP systolic 120–139; BP diastolic 64–69; PULSE 59–65; RESP 20
[2017-02-07] MEDS: CIPROFLOXACIN 500 MG TAB PO SCH (05:52)
[2017-02-07] MEDS: GABAPENTIN 300 MG CAP PO SCH ×2 (08:58→12:36)
[2017-02-07] MEDS: morphine (ER) 15 MG TAB PO SCH (08:59)
[2017-02-07] MEDS: DIVALPROEX (ER) 250 MG TAB PO SCH ×2 (09:00→12:35)
[2017-02-07] MEDS: AMLODIPINE 5 MG TAB PO SCH (09:00)
[2017-02-07] MEDS: ASPIRIN (EC) 81 MG TAB PO SCH (09:00)
[2017-02-07] MEDS: PANTOPRAZOLE (EC) 40 MG TAB PO SCH (09:01)
[2017-02-07] MEDS: ISOSORBIDE DINITRATE 20 MG TAB PO SCH ×2 (09:01→12:36)
[2017-02-07] MEDS: LAMOTRIGINE 25 MG TAB PO SCH (09:01)
[2017-02-07] MEDS: AMIODARONE 200 MG TAB PO SCH (09:01)
[2017-02-07] MEDS: TICAGRELOR 90 MG TABLET PO SCH (09:02)
--- NOTE | 2017-02-07 09:02 | PN ---
DATE: 02/07/2017 SUBJECTIVE DATA: The patient is stable. No events overnight. No fevers, chills, nausea, vomiting. No shortness of breath. OBJECTIVE DATA: VITAL SIGNS: Blood pressure is 123/64, respirations 20, pulse 71, temperature 98.3. HEENT: Head is normocephalic. NECK: Supple. HEART: Regular rate. LUNGS: Diminished breath sounds at the base. ABDOMEN: Soft, nontender to palpation. No rebound or guarding. EXTREMITIES: Negative for clubbing, cyanosis. No edema. DERMATOLOGIC: No rashes. MUSCULOSKELETAL: No joint effusion. NEUROLOGIC: No change in exam. MEDICATIONS: Reviewed. LABORATORY AND DIAGNOSTIC DATA: Laboratory data from 02/06/2017 has been reviewed. Laboratory data from 02/07/2017 pending. ASSESSMENT AND PLAN: 1. Nonoliguric acute kidney injury on top of chronic kidney disease with unknown baseline creatinine. Etiology secondary to hemodynamics. Renal function is improving. At this point, continue current treatment. Supportive care. Renally dose medications for nephrotoxins. 2. Hypokalemia, resolved. Continue to monitor. 3. Hyponatremia, resolved. 4. Anemia. Monitor H and H levels. 5. Mineral bone disorder. Monitor calcium and phosphorus levels. 6. Urinary tract infection. Continue current antibiotic regimen. 7. Non-ST elevation myocardial infarction. Continue medical management. The patient is status post left heart catheterization with percutaneous coronary intervention to the LAD. Dictated By: Lee James DO /faye/ec /Document#: [id number]
[2017-02-07] MEDS: ENOXAPARIN 80 MG/0.8 ML SYG SC SCH (09:03)
[2017-02-07 11:17] LABS: CALCIUM 8.8 mg/dl (8.4-10.2); CREATININE 1.24 mg/dl (0.61-1.24); POTASSIUM 4.2 mmol/L (3.5-5.1)
[2017-02-07] MEDS: LORAZEPAM 2 MG INJ IV PRN ×2 (12:35→12:46)
--- NOTE | 2017-02-07 13:20 | PDOCDIS ---
Discharge Instructions DIAGNOSIS Discharge Diagnosis CAD. CONDITION Patient Condition: Stable HOME CARE INSTRUCTIONS: Diet Instructions: Low Fat /CholesterolSpecial Diet: RENAL DIET FOLLOW UP/APPOINTMENTS Follow-up Plan Gavino Bazzi MD Specialty Cardiology Office Address [address] [place] [id number] Office DARLENE THOMPSON NP Feb 07, 2017 13:20
[2017-02-07] MEDS ORDERED: LORA1TAB PO (13:22)
[2017-02-07] MEDS ORDERED: ASPI-664 PO (13:22)
[2017-02-07] MEDS ORDERED: TICA90TA PO (13:22)
[2017-02-07] MEDS ORDERED: CIPR500T4 PO (13:22)
[2017-02-07] MEDS ORDERED: LORAZEPAM 1 MG TAB PO PRN (13:30)
--- NOTE | 2017-02-08 07:30 | DS ---
DATE OF ADMISSION: 01/31/2017 DATE OF DISCHARGE: 02/07/2017 FINAL DIAGNOSES: 1. Non ST-elevation myocardial infarction, status post left heart catheterization and placement of drug-eluting stent to left anterior descending. 2. Acute nonoliguric kidney injury. 3. Urinary tract infection. 4. Anemia of chronic disease. 5. Essential hypertension. 6. History of cardiac arrhythmias. 7. Debility. 8. Status post mechanical fall with no evidence of any underlying intracranial findings. 9. Ischemic cardiomyopathy. 10. Bipolar disorder. CONSULTANTS: 1. Dr. Gavino Bazzi, Cardiology. 2. Dr. Solomon, Neurology. 3. Lee James DO, Nephrology. HOSPITAL COURSE: This is a 76-year-old male with past medical history of paroxysmal atrial fibrillation, bipolar disorder, and peripheral vascular disease who was sent from an assisted living facility because of ground level fall. The patient was ambulating, using his walker and he somehow tripped and fell. He did bump his head against the wall and landed on his back. There was no reported loss of consciousness, dizziness, chest pain, palpitations, or shortness of breath. When he presented to the emergency room, the patient's head CT showed remote infarct as well as early ischemic injury. The patient was noticed to have a troponin of 3.130. The patient had a positive urinalysis. The patient was also noticed to have evidence of acute kidney injury. Provided the patient's history of present illness, his comorbidities and the diagnostic findings a clinical decision was made to admit the patient to inpatient setting to have him further evaluated. The patient was admitted to inpatient telemetry floor. A cardiology consult and nephrology consult was called. A neurology consult was also obtained. The patient was started on a therapeutic anticoagulation for his underlying non-ST elevation myocardial infarction. Nephrology was involved in the care to stabilize the patient's renal function. Once the patient's renal function was stabilized, the patient was taken to the supervisor labor gang. The patient underwent a left heart catheterization with placement of drug- eluting stent to the LAD. Postprocedure, the patient was started on dual antiplatelet therapy. The patient's 2D echocardiogram showed ejection fraction of 40-45 percent. The patient was evaluated by neurology for any underlying acute intracranial findings. The patient's brain CT scan was negative as mentioned earlier. The patient was evaluated by physical therapy, and physical therapy recommended long-term facility placement. The patient was noticed to be very unstable with his gait. The patient was also noticed to have underlying urinary tract infection. The patient's urine culture was positive for Pseudomonas aeruginosa. The patient was maintained on appropriate antibiotics for the same. The patient's acute kidney injury was also resolved over the course of his hospital stay. The patient was noticed to have macrocytic anemia. The patient's H and H remained stable. The patient's iron panel showed a low TIBC. The patient has underlying bipolar disorder. The patient was maintained on mood stabilizers for the same. Postprocedure, the patient was monitored in-house for awhile to ensure no further kidney damage from the use of dye during the left heart catheterization. The patient was cleared by consultants to be discharged home. DISCHARGE DISPOSITION AND PLAN: The patient will be discharged to a long-term facility. The patient will take medications as per prescription. Activities will be with assist. FDC was instructed to have the patient follow up with the voice network administrator in two weeks. The patient will take a low- cholesterol, preferably renal diet. Nursing was instructed to endorse the discharge instructions to the personnel at the long-term facility. DISCHARGE CONDITION: Stable. DISCHARGE MEDICATIONS: 1. Aspirin 81 mg p.o. daily. 2. Brilinta 90 mg p.o. b.i.d. 3. Ciprofloxacin 500 mg p.o. b.i.d. (14 tablets). 4. Ativan 0.5 mg p.o. q.8 hours p.r.n. anxiety. 5. Amiodarone 200 mg p.o. daily. 6. Atorvastatin 20 mg p.o. q.h.s. 7. Divalproex ER 250 mg p.o. t.i.d. 8. Gabapentin 300 mg p.o. t.i.d. 9. Isosorbide dinitrate 20 mg p.o. q.12 hours. 10. Lamotrigine 25 mg p.o. b.i.d. 11. Morphine sulfate sustained release 15 mg p.o. q.12 hours. 12. Protonix 40 mg p.o. b.i.d. 13. Tamsulosin 0.4 mg p.o. q.h.s. 14. Trazodone 100 mg p.o. q.h.s. 15. Ambien 5 mg p.o. q.h.s. p.r.n. insomnia. PERTINENT LAB TESTS AND PROCEDURES: 1. Left heart catheterization. Percutaneous transluminal coronary angioplasty with placement of drug-eluting stent x1 to the mid LAD. 2. 2D echocardiogram. Ejection fraction of 40-45 percent. Stage I diastolic dysfunction. Estimated peak PA systolic pressure 34 mmHg. Mild pulmonic regurgitation. 3. Brain CT scan. No intracranial hemorrhage or acute intracranial abnormality. Moderate chronic microvascular ischemic changes and age-related volume loss. Remote right temporal lobe ischemic infarct. 4. Latest chest x-ray, 02/04/2017 with increased diffuse bilateral interstitial prominence consistent with edema or interstitial infiltrates, mild right basilar atelectasis. 5. Latest CBC: WBC 8.1, hemoglobin 11.3, hematocrit 36.1, platelet count 213. 6. Latest BMP: Sodium 140, potassium 4.2, chloride 107, carbon dioxide 28, anion gap 9, BUN 27, creatinine 1.24, glucose 90, calcium 8.8. 7. Fasting lipid panel: Triglycerides 46, total cholesterol 93, LDL 38. HDL 46. 8. Iron panel: Iron 55, TIBC 234, iron saturation 24. At this time, I would like to thank all the consultants for seeing the patient, doing the necessary procedures, and providing clinical recommendations The case and management of this patient was fully discussed with Dr. Davis. Approximately 40 minutes was spent on coordinating the discharge on this patient. Dictated By: Surya Fajardo NP /faye/jayesh /Document#: [id number] TARUN
== END 2017-02-07 16:00 | DRG 247 ==
LOC: E/R 20:08 → MS4 22:03 → ICU 02-04 14:40 → MS4 02-05 18:25
PROVIDERS: ADMIT Internal Medicine; ATTEND Internal Medicine
PROC: B211YZZ Fluoroscopy of Multiple Coronary Arteries using Other Contrast (ICD-10-PCS; 2017-02-04)
PROC: 027034Z Dilation of Coronary Artery, One Artery with Drug-eluting Intraluminal Device, Percutaneous Approach (ICD-10-PCS; principal; 2017-02-04 13:30)
PROC: 4A023N7 Measurement of Cardiac Sampling and Pressure, Left Heart, Percutaneous Approach (ICD-10-PCS; 2017-02-04 13:30)
DX: I21.4 Non-ST elevation (NSTEMI) myocardial infarction (principal); N17.9 Acute kidney failure, unspecified; G20 Parkinson's disease; E87.1 Hypo-osmolality and hyponatremia; E83.9 Disorder of mineral metabolism, unspecified; R00.1 Bradycardia, unspecified; N39.0 Urinary tract infection, site not specified; E87.5 Hyperkalemia; D63.8 Anemia in other chronic diseases classified elsewhere; Z91.81 History of falling; Z98.890 Other specified postprocedural states; F31.9 Bipolar disorder, unspecified; N40.0 Benign prostatic hyperplasia without lower urinary tract symptoms; I73.9 Peripheral vascular disease, unspecified; M89.8X8 Other specified disorders of bone, other site; I48.0 Paroxysmal atrial fibrillation; I45.10 Unspecified right bundle-branch block; I25.10 Atherosclerotic heart disease of native coronary artery without angina pectoris; D53.9 Nutritional anemia, unspecified; I25.5 Ischemic cardiomyopathy; E87.6 Hypokalemia
CPT/HCPCS: 36415; 36600; 70450; 71010; 71020; 76775; 80048; 80053; 80061; 81001; 81003; 82043; 82550; 82553; 82728; 82803; 82962; 83540; 83735; 84100; 84155; 84300; 84443; 84484; 85025; 87081; 87086; 93005; 93306; 93458; 94640; 94664; 97162; J1940; C1725; C1769; C1876; C1887; C9600; J0744; J1644; J2060; J2250; J2270; J3010; J7030; J7040; P9047; Q9967